=== PATIENT | female | born 1955 | race American Indian/Alaskan Native ===

== ENCOUNTER 2017-02-06 20:30 | Emergency (ER) | payer OTHER ==
[2017-02-06] MEDS ORDERED: NACL 0.9% 1000 ML 1,000 ML IV ONE (20:40)
--- NOTE | 2017-02-06 20:48 | Emergency Department Report ---
HPI - General Chief Complaint: Syncope Time Seen by Provider: 02/06/17 20:35 - HPI HPI: This is a 61-year-old Afro-Wallisian female presents emergency department by EMS from home with a complaint of a episode of passing out or nearly passing out as well as some hypotension. The patient says she spent a long amount of time outside today in the heat preparing food and ate barbecue. At one point she felt dizzy and went to sit down on the porch and was witnessed by family falling backwards onto her back. They called EMS saying that the patient was having some seizure-like activity. EMS got there and the patient just appeared to be lethargic and/or confused and was found to be hypotensive with a systolic in the 70s. She was given some IV fluid and EMS says she has improved. The patient says she has a history of spinal stenosis, a AL in 1998 and a questionable previous CVA without any current deficits. Patient is from [place] where she has a primary care physician. She has been in [place] for the past 1.5 months. ED Past Medical Hx - Past Medical History Previous Medical History?: Yes Hx Hypertension: Yes Hx CVA: Yes Hx Seizures: Yes Additional medical history: c spine stenosis - Surgical History Past Surgical History?: Yes Additional Surgical History: j luis in neck, fusion c spine. - Social History Smoking Status: Current Every Day Smoker Substance Use Type: Alcohol, Marijuana - Medications Home Medications: Home Medications Medication Instructions Recorded Confirmed Last Taken Type Nitrofurantoin Du[place]in/M-Cryst 100 mg PO ONCE #14 capsule 02/07/17 Unknown Rx [Macrobid CAP] ED Review of Systems ROS: Stated complaint: LOW BP Other details as noted in HPI Comment: All other systems reviewed and negative Constitutional: denies: chills, fever Eyes: denies: eye pain, eye discharge, vision change ENT: denies: ear pain, throat pain Respiratory: denies: cough, shortness of breath, wheezing Cardiovascular: syncope. denies: chest pain Gastrointestinal: denies: abdominal pain, nausea, diarrhea Genitourinary: denies: urgency, dysuria, discharge Musculoskeletal: denies: back pain, joint swelling, arthralgia Skin: denies: rash, lesions Neurological: other (dizziness). denies: headache Physical Exam - Physical Exam Vital Signs: Vital Signs 02/06/17 20:34 Temperature 97.9 F Pulse Rate 84 Respiratory 18 Rate Blood Pressure 97/61 O2 Sat by Pulse 99 Oximetry Physical Exam: GENERAL: The patient is well-developed well-nourished. HEENT: Normocephalic. Atraumatic. Extraocular motions are intact. Patient has moist mucous membranes. Pupils equal reactive to light bilaterally. No nystagmus. NECK: Supple. Trachea is midline. CHEST/LUNGS: Clear to auscultation. There is no respiratory distress noted. HEART/CARDIOVASCULAR: Regular. There is no tachycardia. There is no gallop rub or murmur. ABDOMEN: Abdomen is soft, nontender. Patient has normal bowel sounds. There is no abdominal distention. SKIN: Patient has a small partial thickness burn to the plantar portion of the right great toe. NEURO: The patient is awake, alert, and oriented. The patient is cooperative. The patient has no focal neurologic deficits. The patient has normal speech. Cranial nerves II through XII grossly intact. Pronator drift. No dysmetria. MUSCULOSKELETAL: There is no tenderness or deformity. There is no limitation range of motion. There is no evidence of acute injury. Muscle strength 5 out of 5 for upper and lower extremity bilaterally. Cap refill less than 2 seconds. ED Course Vital Signs 02/06/17 20:34 Temperature 97.9 F Pulse Rate 84 Respiratory 18 Rate Blood Pressure 97/61 O2 Sat by Pulse 99 Oximetry ED Medical Decision Making - Lab Data Result diagrams: 02/06/17 21:20 02/06/17 21:20 - EKG Data -: EKG Interpreted by Mi EKG shows normal: sinus rhythm, axis, intervals, QRS complexes, ST-T waves Rate: normal - EKG Data When compared to previous EKG there are: previous EKG unavailable Interpretation: normal EKG - Radiology Data Radiology results: report reviewed, image reviewed interpreted by me: Chest x-ray did not show any acute process. Heart is normal shape and size. No effusions. No pneumothorax. No signs of pneumonia seen. Abdominal x-ray shows some nonspecific nonobstructive bowel gas and some stool throughout the colon. CT of the head does not show any acute process including no hemorrhage, mass, shift, diffuse edema or skull fracture. - Medical Decision Making 61-year-old female presents the emergency department after she had some syncope or near syncope at home. The patient presented with some hypotension that responded very well to IV fluid resuscitation. The patient's that she spent a long time outside in the heat before this all began. Since the patient has been in the emergency department she has been awake, alert and in no acute distress. She had a CT of the head without contrast did not show any bleed, shift, mass or any acute process. EKG did not show any signs of ST elevation AL , ischemia or dysrhythmia. Patient's labs and the mostly unremarkable. There is a mild urinary tract infection. Otherwise there is no leukocytosis, electrolyte abnormalities, renal insufficiency, glucose abnormalities. She has normal thyroid function. Negative troponin. Patient was given IV fluid resuscitation, a dose of Toradol for some chronic pains and a Macrobid for a mild urinary tract infection. Patient was tested for ambulation in the emergency department and appeared stable. With the patient's negative workup and her history, it appears that the patient may have had a vasovagal episode or some hypotension from dehydration. Nonetheless, there has been no focal, motor or sensory deficits in her cranial nerves are intact. The patient appears safe for discharge home at this time. She's been encouraged to follow up with a primary care doctor and return to the emergency department with any worsening of her symptoms or any acute distress. She understands and agrees the plan. - Differential Diagnosis orthostatic hypotension, vasovagal, TIA, UTI, dehydration Critical Care Time: No Critical care attestation.: If time is entered above; I have spent that time in minutes in the direct care of this critically ill patient, excluding procedure time. ED Disposition Clinical Impression: Dehydration Syncope Qualifiers: Syncope type: unspecified Qualified Code(s): R55 - Syncope and collapse UTI (urinary tract infection) Qualifiers: Urinary tract infection type: acute cystitis Hematuria presence: without hematuria Qualified Code(s): N30.00 - Acute cystitis without hematuria Disposition: DISCHARGED TO HOME OR SELFCARE Is pt being admited?: No Condition: Stable Instructions: Syncope (ED), Urinary Tract Infection in Women (ED), Dehydration (ED) Additional Instructions: Please follow-up with a primary care doctor in the next few days if possible. Return to the emergency department with any worsening of your symptoms or any acute distress. Prescriptions: Nitrofurantoin Duplin/M-Cryst [Macrobid CAP] 100 mg PO ONCE #14 capsule Referrals: PRIMARY CARE, [Primary Care Provider] - 3-5 Days Time of Disposition: 01:16
--- NOTE | 2017-02-06 21:28 | Cat Scan Report ---
FINAL REPORT EXAM: CT HEAD/BRAIN WO CON HISTORY: Syncope TECHNIQUE: CT was performed from the foramen magnum through the vertex in the axial plane without the use of intravenous contrast. PRIORS: None. FINDINGS: The almendarez/white matter attenuation pattern is normal. There is no mass lesion or mass effect. There are no abnormal extra-axial fluid collections. There is no evidence of acute intracranial hemorrhage or infarct. The ventricles are of normal size and configuration. The skull and orbits are unremarkable. The visualized paranasal sinuses are clear. IMPRESSION: Normal CT of the head.
[2017-02-06 21:45] LABS: Basophils % (Auto) 1.4 % (0.0-1.8); Eosinophils % (Auto) 3.4 % (0.0-4.3); Hemoglobin 12.5 gm/dl (10.1-14.3); Mean Corpuscular HGB Conc 34 % (30-34); Mean Corpuscular Hemoglobin 33 pg (28-32); Mean Corpuscular Volume 97 fl (79-97); Platelet Count 159 K/mm3 (140-440); Red Blood Count 3.83 M/mm3 (3.65-5.03); Red Cell Distribution Width 13.5 % (13.2-15.2); White Blood Count 7.9 K/mm3 (4.5-11.0)
[2017-02-06 21:57] LABS: Alanine Aminotransferase 14 units/L (7-56); Albumin/Globulin Ratio 1.5 %; Alkaline Phosphatase 54 units/L (35-129); Anion Gap 22 mmol/L; Bilirubin,Total 0.2 mg/dL (0.1-1.2); Blood Urea Nitrogen 18 mg/dL (7-17); Calcium 9.3 mg/dL (8.4-10.2); Carbon Dioxide 18 mmol/L (22-30); Chloride 104.7 mmol/L (98-107); Glucose 95 mg/dL (65-100); Potassium 3.8 mmol/L (3.6-5.0); Sodium 141 mmol/L (137-145); Total Protein 6.6 g/dL (6.3-8.2)
[2017-02-06] MEDS ORDERED: TORADOL IV ONE (23:04)
[2017-02-07 00:41] LABS: Bacteria,Urine 1+ /HPF (Negative); Mucus,Urine FEW /HPF
[2017-02-07 01:00] LABS: Bilirubin,Urine NEG (Negative); Blood,Urine SM (Negative); Ketones,Urine NEG (Negative); Leukocyte Esterase,Urine LG (Negative); Nitrite,Urine POS (Negative); Protein,Urine <15 mg/dL mg/dL (Negative); Urobilinogen,Urine < 2.0 mg/dL (<2.0)
[2017-02-07] MEDS ORDERED: MACROBID PO ONE (01:07)
[2017-02-07 01:31] VITALS: BP 115/84
--- NOTE | 2017-02-07 08:52 | XRay Report ---
ABDOMINAL SERIES: History: Abdominal pain, constipation. Supine and upright views of the abdomen and frontal view of the chest are submitted. There is gas mixed with moderate stool throughout the colon. There are no dilated loops of bowel or air-fluid levels. There is no free intraperitoneal gas. The lungs are clear. IMPRESSION: Fecal retention.
== END 2017-02-07 01:31 | disposition home or self-care (01) ==
LOC: ED 20:30
DX: E86.0 Dehydration (principal); N30.00 Acute cystitis without hematuria; R55 Syncope and collapse; I10 Essential (primary) hypertension; I63.9 Cerebral infarction, unspecified; F17.200 Nicotine dependence, unspecified, uncomplicated; F12.90 Cannabis use, unspecified, uncomplicated
CPT/HCPCS: 36415; 70450; 74022; 80053; 81001; 82550; 84443; 84484; 85025; 93005; 93010; 96361; 96374; 99285; J1885

== ENCOUNTER 2017-09-25 08:21 | Inpatient (IN) | payer MEDICAID ==
--- NOTE | 2017-09-25 10:09 | Emergency Department Report ---
HPI - General Chief Complaint: Allergic Reaction ED Past Medical Hx - Past Medical History Previous Medical History?: Yes Hx Hypertension: Yes Hx CVA: Yes Hx Seizures: Yes Additional medical history: c spine stenosis - Surgical History Past Surgical History?: Yes Additional Surgical History: j luis in neck, fusion c spine. - Social History Smoking Status: Current Every Day Smoker Substance Use Type: Alcohol - Medications Home Medications: Home Medications Medication Instructions Recorded Confirmed Last Taken Type Nitrofurantoin [place]/M-Cryst 100 mg PO ONCE #14 capsule 02/07/17 Unknown Rx [Macrobid CAP] ED Review of Systems ROS: Stated complaint: ALLERGIC REACTION Other details as noted in HPI Physical Exam - Physical Exam Vital Signs: Vital Signs 09/25/17 08:35 Temperature 98.4 F Pulse Rate 100 H Respiratory 16 Rate Blood Pressure 104/77 O2 Sat by Pulse 97 Oximetry ED Course Vital Signs 09/25/17 08:35 Temperature 98.4 F Pulse Rate 100 H Respiratory 16 Rate Blood Pressure 104/77 O2 Sat by Pulse 97 Oximetry Critical care attestation.: If time is entered above; I have spent that time in minutes in the direct care of this critically ill patient, excluding procedure time. ED Disposition Condition: Stable Referrals: PRIMARY CARE, [Primary Care Provider] - 3-5 Days
[2017-09-25 11:01] LABS: Basophils % (Auto) 0.6 % (0.0-1.8); Eosinophils % (Auto) 1.6 % (0.0-4.3); Hematocrit 41.1 % (30.3-42.9); Hemoglobin 13.6 gm/dl (10.1-14.3); Mean Corpuscular HGB Conc 33 % (30-34); Mean Corpuscular Hemoglobin 32 pg (28-32); Mean Corpuscular Volume 97 fl (79-97); Platelet Count 208 K/mm3 (140-440); Red Blood Count 4.25 M/mm3 (3.65-5.03); Red Cell Distribution Width 13.9 % (13.2-15.2); White Blood Count 11.7 K/mm3 (4.5-11.0)
[2017-09-25 11:20] LABS: Albumin 4.1 g/dL (3.9-5); Albumin/Globulin Ratio 1.3 %; Bilirubin,Total 0.4 mg/dL (0.1-1.2); Calcium 9.2 mg/dL (8.4-10.2); Chloride 105.2 mmol/L (98-107); Potassium 3.9 mmol/L (3.6-5.0); Total Protein 7.2 g/dL (6.3-8.2)
[2017-09-25] MEDS ORDERED: BENADRYL IV ONE (11:52)
[2017-09-25] MEDS ORDERED: ADRENALIN IM ONE (12:56)
--- NOTE | 2017-09-25 13:02 | Emergency Department Report ---
ED Allergic Reaction HPI - General Chief complaint: Allergic Reaction Stated complaint: ALLERGIC REACTION Time Seen by Provider: 09/25/17 10:51 Source: patient, family Mode of arrival: Ambulatory Limitations: No Limitations - History of Present Illness MD Complaint: allergic reaction, other (angioedema on donaldo) -: Gradual (2 days) Exposure: medication (lisinopril 30 daily) Symptoms: itching, facial swelling, lip swelling, difficulty swallowing (afraid to eat). denies: difficulty breathing, orolingual swelling, hoarseness, syncopy , dizziness, nausea, vomiting, abdominal pain Severity: moderate Treatment Prior to Arrival: none Previous Allergy History: none - Related Data Allergies Allergy/AdvReac Type Severity Reaction Status Date / Time No Known Allergies Allergy Unverified 02/06/17 20:34 ED Review of Systems ROS: Stated complaint: ALLERGIC REACTION Other details as noted in HPI Comment: All other systems reviewed and negative Constitutional: denies: fever ENT: throat pain Respiratory: denies: shortness of breath Cardiovascular: denies: chest pain, palpitations Skin: other (itching no rash). denies: rash Neurological: denies: headache, weakness Psychiatric: denies: anxiety, depression Hematological/Lymphatic: denies: easy bleeding ED Past Medical Hx - Past Medical History Previous Medical History?: Yes Hx Hypertension: Yes Hx CVA: Yes Hx Seizures: Yes Additional medical history: c spine stenosis - Surgical History Past Surgical History?: Yes Additional Surgical History: j luis in neck, fusion c spine. - Social History Smoking Status: Current Every Day Smoker Substance Use Type: Alcohol ED Physical Exam - General Limitations: No Limitations General appearance: alert, in no apparent distress (no sob on admit) - Head Head exam: Present: atraumatic - Eye Eye exam: Present: PERRL - ENT ENT exam: Present: mucous membranes moist, other (mild swelling throat and tongue- for 2 days; lips swollen) - Neck Neck exam: Present: normal inspection - Respiratory Respiratory exam: Present: normal lung sounds bilaterally - Cardiovascular Cardiovascular Exam: Present: regular rate, tachycardia (100) - GI/Abdominal GI/Abdominal exam: Present: soft - Rectal Rectal exam: Present: deferred - Extremities Exam Extremities exam: Present: normal inspection, full ROM - Back Exam Back exam: Present: normal inspection - Neurological Exam Neurological exam: Present: alert, oriented X3, CN II-XII intact, normal gait, reflexes normal - Psychiatric Psychiatric exam: Present: normal affect, normal mood - Skin Skin exam: Present: warm, dry, intact. Absent: rash ED Course Vital Signs 09/25/17 09/25/17 09/25/17 08:35 13:52 14:06 Temperature 98.4 F Pulse Rate 100 H 93 H 101 H Respiratory 16 15 43 H Rate Blood Pressure 104/77 O2 Sat by Pulse 97 94 93 Oximetry 09/25/17 09/25/17 14:15 15:40 Temperature Pulse Rate 92 H 90 Respiratory 29 H 20 Rate Blood Pressure 115/56 O2 Sat by Pulse 91 97 Oximetry - Reevaluation(s) Reevaluation #1: 09/25/17 13:19 to er w 2 d hx of lip swelling an itching the only med she is on is lisinopril 30 mg daily and has been for years she denies sob denies cp no rash but is itchy abc intact new to area pmh htn sz gerd spinal stenosis cva in past meds loratidine oxybut b12 Fe lisniopril keppra pepcid carli simvistatin meloxicam nkda psh spinal stenosis medicated labs sent rn had trouble getting a line int finally inserted l hand pt itching p solumedrol benadryl given Dr Kaplan aware of pt- will see mell labs noted pt updated family at bedside. Reevaluation #2: 09/25/17 12:59 Reassessed itching improved pt taking sips po fluids lips about the same voice sounds a bit different than on admit Dr. Kaplan to bedside epi IM To main ED will be admitted. RN aware. RN aware pt needs to go on rail grinder. [id number] RA. 09/25/17 13:23 Dr Martinez notified of pt need to admit icu bed requested per his request pt directly being observed from station w open door Reevaluation #3: 09/25/17 13:24 sat 98% room air 09/25/17 13:48 Dr Martinez at bedside- orders placed for Dr. Martinez Dewer paged ICU bed pending pt to main ED 09/25/17 14:00 Dr Kenney, ICU notified of pt presentation and need for eval per Dr Martinez 09/25/17 1600 Dewer to unit to see pt. pt remains on denise side w ICU bed pending ED Medical Decision Making - Lab Data Result diagrams: 09/25/17 10:19 09/25/17 10:19 - Radiology Data Radiology results: report reviewed, image reviewed - Medical Decision Making see note - Differential Diagnosis angioedema likely donaldo Critical care attestation.: If time is entered above; I have spent that time in minutes in the direct care of this critically ill patient, excluding procedure time. ED Disposition Clinical Impression: Angioedema, HTN (hypertension), Chronic pain Disposition: OP ADMIT IP TO THIS HOSP Is pt being admited?: Yes Does the pt Need Aspirin: No Condition: Stable
--- NOTE | 2017-09-25 13:33 | XRay Report ---
AP CHEST: HISTORY: Allergic reaction, shortness of breath AP view of the chest demonstrates a normal mediastinal and cardiac contour with clear lungs and normal bony and soft tissue structures. IMPRESSION: Unremarkable AP chest.
[2017-09-25] MEDS ORDERED: PEPCID IV ONE (13:43)
[2017-09-25] MEDS ORDERED: BENADRYL IV PRN (13:45)
--- NOTE | 2017-09-25 14:06 | History and Physical Report ---
History of Present Illness Date of examination: 09/25/17 Chief complaint: Swelling of the lips History of present illness: 62-year-old -Beninese female with past medical history significant for hypertension, seizure, spinal stenosis, GERD, stroke presented to the emergency department with complaints of facial swelling. Patient claimed she had itching on Tuesday afternoon, yesterday she had f facial swelling that has been progressively getting worse, involving the lips and this morning she has some change in her voice and patient presented to the emergency department. Patient has been taking lisinopril for many years. Patient has mild difficulty of breathing after she presented in the emergency department. Patient did have any wheezing, stridor, or any signs of respiratory distress. Patient was evaluated and start appropriate treatment for angioedema and cigar binder consulted and admitted to ICU. REVIEW OF SYSTEMS: GENERAL: no weight change, no fatigue, no fever HEAD: no head ache EYES: no blurry vision, no acute visual loss EARS: no hearing loss, no discharge, no earache NOSE: no stuffiness, no sneezing, no discharge MOUTH, THROAT AND NECK: no bleeding gums, no sore throat, no swollen neck CARDIAC: no palpitations, no dyspnea on exertion, no orthopnea, no PND, no edema , no chest pain RESPIRATORY: no shortness of breath, no wheeze, no cough, no sputum, no hemoptysis, no asthma GI: no decreased appetite, no nausea, no vomiting, no dysphagia, no diarrhea, no constipation, no abdominal pain URINARY: no change in frequency, no urgency, no polyuria, no hematuria, no incontinence MUSCULOSKELETAL: no muscle weakness, no pain, no joint stiffness NEUROLOGIC: no loss of sensation/numbness, no tingling, no tremors, no weakness/ paralysis HEMATOLOGIC: no anemia, no easy bruising SKIN: no rashes ENDOCRINE: no heat/cold intolerance, no polyuria, no polydipsia, no thyroid problems, no diabetes PSYCHIATRIC: no anxiety, no depression, no suicidal ideations Past History Past Medical History: GERD, hypertension, stroke, other (spinal stenosis) Past Surgical History: Other (multiple back surgery) Social history: full code. denies: smoking, alcohol abuse, prescription drug abuse, IV drug use Family history: no significant family history Medications and Allergies Allergies Allergy/AdvReac Type Severity Reaction Status Date / Time No Known Allergies Allergy Unverified 02/06/17 20:34 Active Meds: Active Medications Diphenhydramine HCl (Benadryl) 25 mg IV Q6H PRN PRN Reason: Itching Famotidine (Pepcid) 20 mg IV BID JUAN Heparin Sodium (Porcine) (Heparin) 5,000 unit SUB-Q Q8HR JUAN Methylprednisolone Sodium Succinate (Solu-Medrol) 125 mg IV DAILY [facility] Exam - Physical Exam Narrative exam: Not in cardiopulmonary distress. The patient appeared well nourished and normally developed. Vital signs as documented. Lips swelling, facial swelling. Head exam is unremarkable. No scleral icterus . Neck is without jugular venous distension, thyromegaly, or carotid bruits. Lungs are clear to auscultation. No wheezing. Cardiac exam reveals regular rate and Rhythm. First and second heart sounds normal. No murmurs, rubs or gallops. Abdominal exam reveals normal bowel sounds, no masses, no organomegaly and no aortic enlargement. Extremities are nonedematous and both femoral and pedal pulses are normal. [employer]: Alert and oriented 3. No focal weakness. - Constitutional Vitals: Temp Pulse Resp BP Pulse Ox 98.4 F 100 H 16 104/77 97 09/25/17 08:35 09/25/17 08:35 09/25/17 08:35 09/25/17 08:35 09/25/17 08:35 Results - Labs CBC & Chem 7: 09/25/17 10:19 09/25/17 10:19 Labs: Laboratory Last Values WBC 11.7 K/mm3 (4.5-11.0) H 09/25/17 10:19 RBC 4.25 M/mm3 (3.65-5.03) 09/25/17 10:19 Hgb 13.6 gm/dl (10.1-14.3) 09/25/17 10:19 Hct 41.1 % (30.3-42.9) 09/25/17 10:19 MCV 97 fl (79-97) 09/25/17 10:19 MCH 32 pg (28-32) 09/25/17 10:19 MCHC 33 % (30-34) 09/25/17 10:19 RDW 13.9 % (13.2-15.2) 09/25/17 10:19 Plt Count 208 K/mm3 (140-440) 09/25/17 10:19 Lymph % (Auto) 26.1 % (13.4-35.0) 09/25/17 10:19 Brule % (Auto) 2.4 % (0.0-7.3) 09/25/17 10:19 Eos % (Auto) 1.6 % (0.0-4.3) 09/25/17 10:19 Baso % (Auto) 0.6 % (0.0-1.8) 09/25/17 10:19 Lymph # 3.1 K/mm3 (1.2-5.4) 09/25/17 10:19 Brule # 0.3 K/mm3 (0.0-0.8) 09/25/17 10:19 Eos # 0.2 K/mm3 (0.0-0.4) 09/25/17 10:19 Baso # 0.1 K/mm3 (0.0-0.1) 09/25/17 10:19 Seg Neutrophils % 69.3 % (40.0-70.0) 09/25/17 10:19 Seg Neutrophils # 8.1 K/mm3 (1.8-7.7) H 09/25/17 10:19 Sodium 141 mmol/L (137-145) 09/25/17 10:19 Potassium 3.9 mmol/L (3.6-5.0) 09/25/17 10:19 Chloride 105.2 mmol/L (98-107) 09/25/17 10:19 Carbon Dioxide 20 mmol/L (22-30) L 09/25/17 10:19 Anion Gap 20 mmol/L 09/25/17 10:19 BUN 18 mg/dL (7-17) H 09/25/17 10:19 Creatinine 1.2 mg/dL (0.7-1.2) 09/25/17 10:19 Estimated GFR 55 ml/min 09/25/17 10:19 BUN/Creatinine Ratio 15 % 09/25/17 10:19 Glucose 108 mg/dL (65-100) H 09/25/17 10:19 Calcium 9.2 mg/dL (8.4-10.2) 09/25/17 10:19 Total Bilirubin 0.40 mg/dL (0.1-1.2) 09/25/17 10:19 AST 12 units/L (5-40) 09/25/17 10:19 ALT 14 units/L (7-56) 09/25/17 10:19 Alkaline Phosphatase 63 units/L (35-129) 09/25/17 10:19 Total Protein 7.2 g/dL (6.3-8.2) 09/25/17 10:19 Albumin 4.1 g/dL (3.9-5) 09/25/17 10:19 Albumin/Globulin Ratio 1.3 % 09/25/17 10:19 - Imaging and Cardiology Chest x-ray: image reviewed (Normal AP CXR) Assessment and Plan Assessment and plan: Angioedema, lip swelling Seizure disorder HTN GERD History of stroke - Patient is on Solu-Medrol, Benadryl, H2 blockers - On duonebs - Start appropriate medications - Intensity was consulted DVT prophylaxis Heparin Disposition Admitted to ICU The high probability of a clinically significant, sudden or life threatening deterioration of the [respiratory] system(s) required my full and direct attention, intervention and personal management. The aggregate critical care time was [31] minutes. This time is in addition to time spent performing reported procedures but includes the following: [x] Data Review and interpretation [x] Patient assessment and monitoring of vital signs [x] Documentation [x] Medication orders and management Advance Directives: Yes VTE prophylaxis?: Chemical Plan of care discussed with patient/family: Yes
--- NOTE | 2017-09-25 15:11 | Consultation ---
History of Present Illness Consult date: 09/25/17 Requesting physician: INDIGO SANDERSON Reason for consult: other (Angioedema) History of present illness: PULMONARY/CCM CONSULT NOTE (Full dictation # [id number]) please see dictated notes for full details Medications and Allergies Allergies Allergy/AdvReac Type Severity Reaction Status Date / Time No Known Allergies Allergy Unverified 02/06/17 20:34 Active Meds: Active Medications Albuterol/Ipratropium (Duoneb *Not For Prn Use*) 1 ampul IH QIDRT JUAN Diphenhydramine HCl (Benadryl) 25 mg IV Q6H PRN PRN Reason: Itching Famotidine (Pepcid) 20 mg IV BID JUAN Heparin Sodium (Porcine) (Heparin) 5,000 unit SUB-Q Q8HR UJAN Methylprednisolone Sodium Succinate (Solu-Medrol) 125 mg IV DAILY JUAN Physical Examination Vital signs: Vital Signs Temp Pulse Resp BP Pulse Ox 98.4 F 100 H 16 104/77 97 09/25/17 08:35 09/25/17 08:35 09/25/17 08:35 09/25/17 08:35 09/25/17 08:35 Results - Laboratory Findings CBC and BMP: 09/25/17 10:19 09/25/17 10:19 Abnormal lab findings: Abnormal Labs 09/25/17 09/25/17 10:19 10:19 WBC 11.7 H Seg Neutrophils # 8.1 H Carbon Dioxide 20 L BUN 18 H Glucose 108 H
[2017-09-25 15:31] LABS: ISTAT Base Excess -9; ISTAT HCO3 16.7; ISTAT PCO2 29.4 (35-45); ISTAT PH 7.361 (7.35-7.45); ISTAT PO2 66 (80-105); ISTAT SO2 92; ISTAT TCO2 18
[2017-09-25] MEDS: DUONEB *Not for PRN Use IH SCH ×2 (16:05→19:47)
[2017-09-25] MEDS ORDERED: KEPPRA 1,000 MG/NS 0.75% 100ML 1,000 MG/100 ML BAG IV ONE (17:23)
[2017-09-25] MEDS: MORPHINE IV PRN (20:22)
[2017-09-25] MEDS ORDERED: KEPPRA 1,000 MG in NACL 0.9% 100 ML IV SCH (22:00)
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
[2017-09-26] MEDS: BENADRYL IV SCH ×5 (00:16→19:23)
[2017-09-26] MEDS: MORPHINE IV PRN ×5 (00:17→21:39)
[2017-09-26] MEDS: HEPARIN SUB-Q SCH ×4 (06:39→21:44)
[2017-09-26] MEDS: PEPCID IV SCH ×3 (06:41→21:34)
[2017-09-26] MEDS: DUONEB *Not for PRN Use IH SCH ×4 (09:26→20:33)
[2017-09-26] MEDS ORDERED: KEPPRA 1,000 MG/NS 0.75% 100ML 1,000 MG/100 ML BAG IV SCH (10:00)
--- NOTE | 2017-09-26 14:46 | Progress Note ---
Assessment and Plan Total Time Spent with Patient (Minutes): 23 - Patient Problems (1) Seizure disorder Current Visit: Yes Status: Acute Plan to address problem: Patient was seizure disorder now gives a possible history of being allergic to Keppra. We'll discontinue Her use an additional agent will obtain neurology evaluation may require another EEG. Patient's description of her seizure is somewhat difficult to obtain. (2) Angioedema Current Visit: Yes Status: Acute Plan to address problem: Now may be secondary to Keppra versus lisinopril. We'll discontinue both medications. Blood pressure stable well controlled at this time. Patient has no stridor lip swelling is going down we'll continue steroids and discharged from ICU. (3) Chronic pain Current Visit: Yes Status: Acute (4) HTN (hypertension) Current Visit: Yes Status: Acute Plan to address problem: A pleasant blood pressure is normal without any medications. No attention but we'll continue to observe. History Interval history: Patient today stated that she had problems with itching after taking keppra which was similar to her initial episode of angioedema. Hospitalist Physical - Constitutional Vitals: Temp Pulse Resp BP Pulse Ox 98.3 F 101 H 18 119/56 98 09/26/17 12:00 09/26/17 12:21 09/26/17 12:21 09/26/17 12:21 09/26/17 12:21 General appearance: Present: no acute distress, other (swollen lip appears to be less than yesterday. Patient does complain of facial itching again.) - EENT Eyes: Present: PERRL, EOM intact ENT: hearing intact, clear oral mucosa, dentition normal, other, no oropharyngeal erythema (angioedema), no poor dentition, no thrush, no ulcerations - Neck Neck: Present: supple, normal ROM, other ( no stridor) - Respiratory Respiratory effort: normal Respiratory: bilateral: CTA - Cardiovascular Rhythm: regular - Extremities Extremities: no ischemia, pulses intact, normal temperature, normal color, Full ROM Extremity abnormal: edema - Abdominal General gastrointestinal: soft, non-tender, non-distended, normal bowel sounds - Psychiatric Psychiatric: appropriate mood/affect, intact judgment & insight, cooperative - Neurologic Neurologic: CNII-XII intact Results - Labs CBC & Chem 7: 09/25/17 10:19 09/25/17 10:19 Labs: Laboratory Last Values WBC 11.7 K/mm3 (4.5-11.0) H 09/25/17 10:19 RBC 4.25 M/mm3 (3.65-5.03) 09/25/17 10:19 Hgb 13.6 gm/dl (10.1-14.3) 09/25/17 10:19 Hct 41.1 % (30.3-42.9) 09/25/17 10:19 MCV 97 fl (79-97) 09/25/17 10:19 MCH 32 pg (28-32) 09/25/17 10:19 MCHC 33 % (30-34) 09/25/17 10:19 RDW 13.9 % (13.2-15.2) 09/25/17 10:19 Plt Count 208 K/mm3 (140-440) 09/25/17 10:19 Lymph % (Auto) 26.1 % (13.4-35.0) 09/25/17 10:19 [place] % (Auto) 2.4 % (0.0-7.3) 09/25/17 10:19 Eos % (Auto) 1.6 % (0.0-4.3) 09/25/17 10:19 Baso % (Auto) 0.6 % (0.0-1.8) 09/25/17 10:19 Lymph # 3.1 K/mm3 (1.2-5.4) 09/25/17 10:19 [place] # 0.3 K/mm3 (0.0-0.8) 09/25/17 10:19 Eos # 0.2 K/mm3 (0.0-0.4) 09/25/17 10:19 Baso # 0.1 K/mm3 (0.0-0.1) 09/25/17 10:19 Seg Neutrophils % 69.3 % (40.0-70.0) 09/25/17 10:19 Seg Neutrophils # 8.1 K/mm3 (1.8-7.7) H 09/25/17 10:19 POC ABG pH 7.361 (7.35-7.45) 09/25/17 15:28 POC ABG pCO2 29.4 (35-45) L 09/25/17 15:28 POC ABG pO2 66 (80-105) L 09/25/17 15:28 POC ABG HCO3 16.7 09/25/17 15:28 POC ABG Total CO2 18 09/25/17 15:28 POC ABG O2 Sat 92 09/25/17 15:28 POC ABG Base Excess -9 09/25/17 15:28 FiO2 21 % 09/25/17 15:28 Sodium 141 mmol/L (137-145) 09/25/17 10:19 Potassium 3.9 mmol/L (3.6-5.0) 09/25/17 10:19 Chloride 105.2 mmol/L (98-107) 09/25/17 10:19 Carbon Dioxide 20 mmol/L (22-30) L 09/25/17 10:19 Anion Gap 20 mmol/L 09/25/17 10:19 BUN 18 mg/dL (7-17) H 09/25/17 10:19 Creatinine 1.2 mg/dL (0.7-1.2) 09/25/17 10:19 Estimated GFR 55 ml/min 09/25/17 10:19 BUN/Creatinine Ratio 15 % 09/25/17 10:19 Glucose 108 mg/dL (65-100) H 09/25/17 10:19 Calcium 9.2 mg/dL (8.4-10.2) 09/25/17 10:19 Total Bilirubin 0.40 mg/dL (0.1-1.2) 09/25/17 10:19 AST 12 units/L (5-40) 09/25/17 10:19 ALT 14 units/L (7-56) 09/25/17 10:19 Alkaline Phosphatase 63 units/L (35-129) 09/25/17 10:19 Total Protein 7.2 g/dL (6.3-8.2) 09/25/17 10:19 Albumin 4.1 g/dL (3.9-5) 09/25/17 10:19 Albumin/Globulin Ratio 1.3 % 09/25/17 10:19
--- NOTE | 2017-09-26 15:21 | Progress Note ---
Assessment and Plan - Patient Problems (1) Angioedema Status: Acute Plan to address problem: Much improved. Continue steroids, antihistamines and H2 blockers Conitnue to monitor airway but can be transferred to telemetry (2) Seizure disorder Status: Acute Plan to address problem: Continue antiseizure medications (3) HTN (hypertension) Status: Acute Plan to address problem: Avoid JULIA inhibitors. Continue all other therapies Lifestyle modifications, DASH diet discussed. Subjective Date of service: 09/26/17 Principal diagnosis: Angioedema Interval history: Seen and examined. Discussed on interdisciplinary rounds. No chest pain, no shortness of breath, no dysphagia Has shown clinical improvement Objective - Exam Narrative Exam: Not in cardiopulmonary distress. The patient appeared well nourished and normally developed. Vital signs as documented. Lips swelling, facial swelling. Head exam is unremarkable. No scleral icterus . Neck is without jugular venous distension, thyromegaly, or carotid bruits. Lungs are clear to auscultation. No wheezing. Cardiac exam reveals regular rate and Rhythm. First and second heart sounds normal. No murmurs, rubs or gallops. Abdominal exam reveals normal bowel sounds, no masses, no organomegaly and no aortic enlargement. Extremities are nonedematous and both femoral and pedal pulses are normal. 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 No focal weakness. Vital Signs - 12hr 09/26/17 09/26/17 09/26/17 03:21 03:31 03:41 Temperature Pulse Rate 63 68 68 Pulse Rate [ Anterior Bilateral Throughout] Pulse Rate [ From Monitor] Respiratory 15 21 20 Rate Respiratory Rate [Anterior Bilateral Throughout] Blood Pressure 117/81 117/81 117/81 O2 Sat by Pulse 99 96 98 Oximetry 09/26/17 09/26/17 09/26/17 03:51 04:00 04:11 Temperature 97.9 F Pulse Rate 73 87 67 Pulse Rate [ Anterior Bilateral Throughout] Pulse Rate [ From Monitor] Respiratory 15 16 16 Rate Respiratory Rate [Anterior Bilateral Throughout] Blood Pressure 117/81 109/58 109/58 O2 Sat by Pulse 98 97 98 Oximetry 09/26/17 09/26/17 09/26/17 04:21 04:31 04:41 Temperature Pulse Rate 77 73 66 Pulse Rate [ Anterior Bilateral Throughout] Pulse Rate [ From Monitor] Respiratory 18 22 15 Rate Respiratory Rate [Anterior Bilateral Throughout] Blood Pressure 109/58 109/58 109/58 O2 Sat by Pulse 98 98 98 Oximetry 09/26/17 09/26/17 09/26/17 04:51 05:01 05:11 Temperature Pulse Rate 68 71 92 H Pulse Rate [ Anterior Bilateral Throughout] Pulse Rate [ From Monitor] Respiratory 14 12 25 H Rate Respiratory Rate [Anterior Bilateral Throughout] Blood Pressure 109/58 123/66 123/66 O2 Sat by Pulse 98 95 99 Oximetry 09/26/17 09/26/17 09/26/17 05:21 05:31 05:41 Temperature Pulse Rate 74 90 82 Pulse Rate [ Anterior Bilateral Throughout] Pulse Rate [ From Monitor] Respiratory 12 15 17 Rate Respiratory Rate [Anterior Bilateral Throughout] Blood Pressure 123/66 123/66 123/66 O2 Sat by Pulse 99 99 97 Oximetry 09/26/17 09/26/17 09/26/17 05:51 06:00 06:11 Temperature Pulse Rate 61 61 79 Pulse Rate [ Anterior Bilateral Throughout] Pulse Rate [ From Monitor] Respiratory 17 20 14 Rate Respiratory Rate [Anterior Bilateral Throughout] Blood Pressure 123/66 106/48 106/48 O2 Sat by Pulse 98 93 97 Oximetry 09/26/17 09/26/17 09/26/17 06:21 06:31 06:41 Temperature Pulse Rate 69 91 H 67 Pulse Rate [ Anterior Bilateral Throughout] Pulse Rate [ From Monitor] Respiratory 13 16 24 Rate Respiratory Rate [Anterior Bilateral Throughout] Blood Pressure 106/48 106/48 106/48 O2 Sat by Pulse 97 95 95 Oximetry 09/26/17 09/26/17 09/26/17 06:51 07:00 07:11 Temperature Pulse Rate 71 86 60 Pulse Rate [ Anterior Bilateral Throughout] Pulse Rate [ From Monitor] Respiratory 17 23 13 Rate Respiratory Rate [Anterior Bilateral Throughout] Blood Pressure 106/48 126/65 126/65 O2 Sat by Pulse 96 87 97 Oximetry 09/26/17 09/26/17 09/26/17 07:21 07:31 07:41 Temperature Pulse Rate 59 L 58 L 61 Pulse Rate [ Anterior Bilateral Throughout] Pulse Rate [ From Monitor] Respiratory 20 20 19 Rate Respiratory Rate [Anterior Bilateral Throughout] Blood Pressure 126/65 126/65 126/65 O2 Sat by Pulse 95 96 97 Oximetry 09/26/17 09/26/17 09/26/17 07:51 08:00 08:08 Temperature 97.4 F L Pulse Rate 69 59 L Pulse Rate [ Anterior Bilateral Throughout] Pulse Rate [ 57 L From Monitor] Respiratory 13 19 20 Rate Respiratory Rate [Anterior Bilateral Throughout] Blood Pressure 126/65 105/57 O2 Sat by Pulse 96 88 97 Oximetry 09/26/17 09/26/17 09/26/17 08:11 08:21 08:31 Temperature Pulse Rate 60 59 L 58 L Pulse Rate [ Anterior Bilateral Throughout] Pulse Rate [ From Monitor] Respiratory 18 16 18 Rate Respiratory Rate [Anterior Bilateral Throughout] Blood Pressure 105/57 105/57 105/57 O2 Sat by Pulse 97 96 97 Oximetry 09/26/17 09/26/17 09/26/17 08:40 08:51 09:00 Temperature Pulse Rate 56 L 62 59 L Pulse Rate [ Anterior Bilateral Throughout] Pulse Rate [ From Monitor] Respiratory 18 18 19 Rate Respiratory Rate [Anterior Bilateral Throughout] Blood Pressure 105/57 105/57 109/54 O2 Sat by Pulse 97 96 88 Oximetry 09/26/17 09/26/17 09/26/17 09:11 09:21 09:23 Temperature Pulse Rate 60 59 L Pulse Rate [ 62 Anterior Bilateral Throughout] Pulse Rate [ From Monitor] Respiratory 21 21 Rate Respiratory 14 Rate [Anterior Bilateral Throughout] Blood Pressure 109/54 109/54 O2 Sat by Pulse 95 96 Oximetry 09/26/17 09/26/17 09/26/17 09:28 09:31 09:41 Temperature Pulse Rate 65 67 Pulse Rate [ Anterior Bilateral Throughout] Pulse Rate [ From Monitor] Respiratory 16 14 Rate Respiratory Rate [Anterior Bilateral Throughout] Blood Pressure 109/54 109/54 O2 Sat by Pulse 97 98 97 Oximetry 09/26/17 09/26/17 09/26/17 09:51 09:56 10:00 Temperature Pulse Rate 83 91 H Pulse Rate [ 86 Anterior Bilateral Throughout] Pulse Rate [ From Monitor] Respiratory 27 H Rate Respiratory 18 Rate [Anterior Bilateral Throughout] Blood Pressure 109/54 O2 Sat by Pulse 94 Oximetry 09/26/17 09/26/17 09/26/17 10:01 10:11 10:21 Temperature Pulse Rate 91 H 71 100 H Pulse Rate [ Anterior Bilateral Throughout] Pulse Rate [ From Monitor] Respiratory 20 19 29 H Rate Respiratory Rate [Anterior Bilateral Throughout] Blood Pressure 118/59 118/59 118/59 O2 Sat by Pulse 88 95 95 Oximetry 09/26/17 09/26/17 09/26/17 10:31 10:41 10:51 Temperature Pulse Rate 81 79 110 H Pulse Rate [ Anterior Bilateral Throughout] Pulse Rate [ From Monitor] Respiratory 13 26 H 21 Rate Respiratory Rate [Anterior Bilateral Throughout] Blood Pressure 118/59 118/59 118/59 O2 Sat by Pulse 95 94 94 Oximetry 09/26/17 09/26/17 09/26/17 11:00 11:11 11:21 Temperature Pulse Rate 84 76 74 Pulse Rate [ Anterior Bilateral Throughout] Pulse Rate [ From Monitor] Respiratory 25 H 28 H 22 Rate Respiratory Rate [Anterior Bilateral Throughout] Blood Pressure 126/60 126/60 126/60 O2 Sat by Pulse 87 96 95 Oximetry 09/26/17 09/26/17 09/26/17 11:31 11:41 11:51 Temperature Pulse Rate 84 74 73 Pulse Rate [ Anterior Bilateral Throughout] Pulse Rate [ From Monitor] Respiratory 28 H 24 20 Rate Respiratory Rate [Anterior Bilateral Throughout] Blood Pressure 126/60 126/60 126/60 O2 Sat by Pulse 95 95 95 Oximetry 09/26/17 09/26/17 09/26/17 12:00 12:11 12:21 Temperature 98.3 F Pulse Rate 68 76 101 H Pulse Rate [ Anterior Bilateral Throughout] Pulse Rate [ 68 From Monitor] Respiratory 22 24 18 Rate Respiratory Rate [Anterior Bilateral Throughout] Blood Pressure 119/56 119/56 119/56 O2 Sat by Pulse 90 96 98 Oximetry CBC and BMP: 09/25/17 10:19 09/25/17 10:19 ABG, PT/INR, D-dimer: ABG POC ABG pH 7.361 (7.35-7.45) 09/25/17 15:28 POC ABG pCO2 29.4 (35-45) L 09/25/17 15:28 POC ABG pO2 66 (80-105) L 09/25/17 15:28 POC ABG HCO3 16.7 09/25/17 15:28 POC ABG Total CO2 18 09/25/17 15:28 POC ABG O2 Sat 92 09/25/17 15:28 Abnormal lab findings: Abnormal Labs 09/25/17 09/25/17 09/25/17 10:19 10:19 15:28 WBC 11.7 H Seg Neutrophils # 8.1 H POC ABG pCO2 29.4 L POC ABG pO2 66 L Carbon Dioxide 20 L BUN 18 H Glucose 108 H
[2017-09-26] MEDS ORDERED: ATIVAN IV PRN (16:46)
[2017-09-26] MEDS ORDERED: KEPPRA PO SCH (22:00)
[2017-09-27] MEDS: BENADRYL IV SCH ×4 (00:33→18:24)
[2017-09-27] MEDS: MORPHINE IV PRN ×3 (02:26→10:47)
[2017-09-27] MEDS: HEPARIN SUB-Q SCH ×3 (07:00→21:42)
[2017-09-27] MEDS: DUONEB *Not for PRN Use IH SCH ×4 (09:46→20:02)
[2017-09-27] MEDS: PEPCID IV SCH (11:20)
--- NOTE | 2017-09-27 13:09 | Consultation ---
History of Present Illness Consult date: 09/27/17 History of present illness: patient is seen and full note dictated... still with headaches and facial swelling post reaction to lisinopril suspect thi is the typical class drug reaction to ARB;s du to the enzyme conversation agree with management- explained xx to patient and planned treatment Past History Past Medical History: GERD, hypertension, stroke, other (spinal stenosis) Past Surgical History: Other (multiple back surgery) Social history: full code. denies: smoking, alcohol abuse, prescription drug abuse, IV drug use Family history: no significant family history Medications and Allergies Allergies Allergy/AdvReac Type Severity Reaction Status Date / Time lisinopril Allergy Angioedema Verified 09/26/17 08:33 Home Medications Medication Instructions Recorded Confirmed Last Taken Type Ferrous Sulfate [Feosol 325 MG tab] 1 tab PO DAILY 09/25/17 09/25/17 09/24/17 21 :00 History 1000 Oxybutynin 5 mg PO BID 09/25/17 09/25/17 09/24/17 21:00 History 5mg Active Meds: Active Medications Albuterol/Ipratropium (Duoneb *Not For Prn Use*) 1 ampul IH QIDRT [facility] Last Admin: 09/27/17 09:46 Dose: 1 ampul Diphenhydramine HCl (Benadryl) 25 mg IV Q6HR [facility] Last Admin: 09/27/17 06:47 Dose: 25 mg Famotidine (Pepcid) 20 mg IV BID [facility] Last Admin: 09/27/17 11:20 Dose: 20 mg Heparin Sodium (Porcine) (Heparin) 5,000 unit SUB-Q Q8HR [facility] Last Admin: 09/27/17 07:00 Dose: 5,000 unit Lorazepam (Ativan) 1 mg IV Q4H PRN PRN Reason: Seizures Last Admin: 09/27/17 10:44 Dose: 1 mg Methylprednisolone Sodium Succinate (Solu-Medrol) 60 mg IV Q6H [facility] Last Admin: 09/27/17 06:48 Dose: 60 mg Morphine Sulfate (Morphine) 2 mg IV Q4H PRN PRN Reason: Pain, Moderate (4-6) Last Admin: 09/27/17 10:47 Dose: 2 mg Physical Examination - Vital Signs Vital Signs: Vital Signs Temp Pulse Resp BP Pulse Ox 98.4 F 100 H 16 104/77 97 12/03/17 08:35 09/25/17 08:35 09/25/17 08:35 09/25/17 08:35 09/25/17 08:35 Results - Laboratory Findings CBC and BMP: 09/25/17 10:19 09/25/17 10:19 Abnormal Lab Findings: Abnormal Labs 09/25/17 09/25/17 09/25/17 10:19 10:19 15:28 WBC 11.7 H Seg Neutrophils # 8.1 H POC ABG pCO2 29.4 L POC ABG pO2 66 L Carbon Dioxide 20 L BUN 18 H Glucose 108 H
--- NOTE | 2017-09-27 14:29 | Progress Note ---
Assessment and Plan Assessment and plan: Angioedema, lip swelling Seizure disorder HTN GERD History of stroke - Patient is on Solu-Medrol, Benadryl, H2 blockers - On duonebs - Discontinued Keppra and started on Depakote - neurology consult appreciated DVT prophylaxis Heparin Disposition - Continue inpatient care History Interval history: Patient was seen and evaluated this morning, she was anxious and tachycardic. Facial swelling is getting better. Hospitalist Physical - Physical exam Narrative exam: Not in cardiopulmonary distress. The patient appeared well nourished and normally developed. Vital signs as documented. Lips swelling, facial swelling. Head exam is unremarkable. No scleral icterus . Neck is without jugular venous distension, thyromegaly, or carotid bruits. Lungs are clear to auscultation. No wheezing. Cardiac exam reveals regular rate and Rhythm. First and second heart sounds normal. No murmurs, rubs or gallops. Abdominal exam reveals normal bowel sounds, no masses, no organomegaly and no aortic enlargement. Extremities are nonedematous and both femoral and pedal pulses are normal. 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 No focal weakness. - Constitutional Vitals: Temp Pulse Resp BP Pulse Ox 98.4 F 74 18 131/64 90 09/27/17 08:08 09/27/17 08:08 09/27/17 08:08 09/27/17 08:08 09/27/17 08:08 General appearance: Present: no acute distress, other (swollen lip appears to be less than yesterday. Patient does complain of facial itching again.) Results - Labs CBC & Chem 7: 09/25/17 10:19 09/25/17 10:19 Labs: Laboratory Last Values WBC 11.7 K/mm3 (4.5-11.0) H 09/25/17 10:19 RBC 4.25 M/mm3 (3.65-5.03) 09/25/17 10:19 Hgb 13.6 gm/dl (10.1-14.3) 09/25/17 10:19 Hct 41.1 % (30.3-42.9) 09/25/17 10:19 MCV 97 fl (79-97) 09/25/17 10:19 MCH 32 pg (28-32) 09/25/17 10:19 MCHC 33 % (30-34) 09/25/17 10:19 RDW 13.9 % (13.2-15.2) 09/25/17 10:19 Plt Count 208 K/mm3 (140-440) 09/25/17 10:19 Lymph % (Auto) 26.1 % (13.4-35.0) 09/25/17 10:19 Wharton % (Auto) 2.4 % (0.0-7.3) 09/25/17 10:19 Eos % (Auto) 1.6 % (0.0-4.3) 09/25/17 10:19 Baso % (Auto) 0.6 % (0.0-1.8) 09/25/17 10:19 Lymph # 3.1 K/mm3 (1.2-5.4) 09/25/17 10:19 Wharton # 0.3 K/mm3 (0.0-0.8) 09/25/17 10:19 Eos # 0.2 K/mm3 (0.0-0.4) 09/25/17 10:19 Baso # 0.1 K/mm3 (0.0-0.1) 09/25/17 10:19 Seg Neutrophils % 69.3 % (40.0-70.0) 09/25/17 10:19 Seg Neutrophils # 8.1 K/mm3 (1.8-7.7) H 09/25/17 10:19 POC ABG pH 7.361 (7.35-7.45) 09/25/17 15:28 POC ABG pCO2 29.4 (35-45) L 09/25/17 15:28 POC ABG pO2 66 (80-105) L 09/25/17 15:28 POC ABG HCO3 16.7 09/25/17 15:28 POC ABG Total CO2 18 09/25/17 15:28 POC ABG O2 Sat 92 09/25/17 15:28 POC ABG Base Excess -9 09/25/17 15:28 FiO2 21 % 09/25/17 15:28 Sodium 141 mmol/L (137-145) 09/25/17 10:19 Potassium 3.9 mmol/L (3.6-5.0) 09/25/17 10:19 Chloride 105.2 mmol/L (98-107) 09/25/17 10:19 Carbon Dioxide 20 mmol/L (22-30) L 09/25/17 10:19 Anion Gap 20 mmol/L 09/25/17 10:19 BUN 18 mg/dL (7-17) H 09/25/17 10:19 Creatinine 1.2 mg/dL (0.7-1.2) 09/25/17 10:19 Estimated GFR 55 ml/min 09/25/17 10:19 BUN/Creatinine Ratio 15 % 09/25/17 10:19 Glucose 108 mg/dL (65-100) H 09/25/17 10:19 Calcium 9.2 mg/dL (8.4-10.2) 09/25/17 10:19 Total Bilirubin 0.40 mg/dL (0.1-1.2) 09/25/17 10:19 AST 12 units/L (5-40) 09/25/17 10:19 ALT 14 units/L (7-56) 09/25/17 10:19 Alkaline Phosphatase 63 units/L (35-129) 09/25/17 10:19 Troponin T < 0.010 ng/mL (0.00-0.029) 09/27/17 10:50 Total Protein 7.2 g/dL (6.3-8.2) 09/25/17 10:19 Albumin 4.1 g/dL (3.9-5) 09/25/17 10:19 Albumin/Globulin Ratio 1.3 % 09/25/17 10:19
[2017-09-27] MEDS ORDERED: XANAX PO PRN (14:32)
[2017-09-27] MEDS: PERCOCET 5/325 PO PRN ×2 (16:42→21:38)
--- NOTE | 2017-09-27 20:17 | Progress Note ---
Assessment and Plan Patient alert, awake Resting on room air.O2 saturation 96%.No acute respiratory distress.Patient said she is going on BIPAP during night time. - Patient Problems (1) Angioedema Current Visit: Yes Status: Acute Plan to address problem: Improved. No tongue swelling today. (2) Chronic pain Current Visit: Yes Status: Acute Plan to address problem: Management as per primary care. (3) HTN (hypertension) Current Visit: Yes Status: Acute Qualifiers: Qualified Code(s): I15.1 - Hypertension secondary to other renal disorders; N28.89 - Other specified disorders of kidney and ureter; N28.89 - Other specified disorders of kidney and ureter Plan to address problem: Management as per primary care. (4) Seizure disorder Current Visit: Yes Status: Acute Plan to address problem: Management as per primary care. Subjective Date of service: 09/27/17 Principal diagnosis: Angioedema Interval history: Patient alert, awake Resting on room air.O2 saturation 96%.No acute respiratory distress.Patient said she is going on BIPAP during night time. Objective Vital Signs - 12hr 09/27/17 09/27/17 09/27/17 09:40 09:55 10:00 Temperature Pulse Rate [ 88 88 Anterior Bilateral Throughout] Pulse Rate [ 80 Bilateral Throughout] Respiratory Rate Respiratory 18 18 Rate [Anterior Bilateral Throughout] Respiratory 20 Rate [Bilateral Throughout] Blood Pressure O2 Sat by Pulse 96 Oximetry 09/27/17 09/27/17 09/27/17 14:57 16:15 16:30 Temperature 97.9 F Pulse Rate [ 90 66 Anterior Bilateral Throughout] Pulse Rate [ Bilateral Throughout] Respiratory 20 Rate Respiratory 20 18 Rate [Anterior Bilateral Throughout] Respiratory Rate [Bilateral Throughout] Blood Pressure 133/63 O2 Sat by Pulse Oximetry CBC and BMP: 09/25/17 10:19 09/25/17 10:19 ABG, PT/INR, D-dimer: ABG POC ABG pH 7.361 (7.35-7.45) 09/25/17 15:28 POC ABG pCO2 29.4 (35-45) L 09/25/17 15:28 POC ABG pO2 66 (80-105) L 09/25/17 15:28 POC ABG HCO3 16.7 09/25/17 15:28 POC ABG Total CO2 18 09/25/17 15:28 POC ABG O2 Sat 92 09/25/17 15:28 Abnormal lab findings: Abnormal Labs 09/25/17 09/25/17 09/25/17 10:19 10:19 15:28 WBC 11.7 H Seg Neutrophils # 8.1 H POC ABG pCO2 29.4 L POC ABG pO2 66 L Carbon Dioxide 20 L BUN 18 H Glucose 108 H
[2017-09-27] MEDS: PEPCID PO SCH (21:40)
[2017-09-28] MEDS: BENADRYL IV SCH ×2 (00:17→06:53)
[2017-09-28] MEDS: PERCOCET 5/325 PO PRN (06:52)
[2017-09-28] MEDS: HEPARIN SUB-Q SCH (07:15)
[2017-09-28 07:24] LABS: Bacteria,Urine 1+ /HPF (Negative); Bilirubin,Urine NEG (Negative); Blood,Urine NEG (Negative); Ketones,Urine TR mg/dL (Negative); Leukocyte Esterase,Urine LG (Negative); Mucus,Urine FEW /HPF; Nitrite,Urine POS (Negative); Protein,Urine <15 mg/dL mg/dL (Negative); Urobilinogen,Urine < 2.0 mg/dL (<2.0)
[2017-09-28 07:25] LABS: WBC,Urine > 182.0 /HPF (0.0-6.0)
[2017-09-28] MEDS: DUONEB *Not for PRN Use IH SCH ×2 (08:01→12:55)
--- NOTE | 2017-09-28 08:26 | Consultation ---
History of Present Illness Consult date: 09/28/17 History of present illness: [facility] the depakote is a/w with no allergies of this type Past History Past Medical History: GERD, hypertension, stroke, other (spinal stenosis) Past Surgical History: Other (multiple back surgery) Social history: full code. denies: smoking, alcohol abuse, prescription drug abuse, IV drug use Family history: no significant family history Medications and Allergies Allergies Allergy/AdvReac Type Severity Reaction Status Date / Time lisinopril Allergy Angioedema Verified 09/26/17 08:33 Home Medications Medication Instructions Recorded Confirmed Last Taken Type Ferrous Sulfate [Feosol 325 MG tab] 1 tab PO DAILY 09/25/17 09/25/17 09/24/17 21 :00 History 1000 Oxybutynin 5 mg PO BID 09/25/17 09/25/17 09/24/17 21:00 History 5mg Active Meds: Active Medications Albuterol/Ipratropium (Duoneb *Not For Prn Use*) 1 ampul IH QIDRT [facility] Last Admin: 09/28/17 08:01 Dose: 1 ampul Alprazolam (Xanax) 0.5 mg PO Q8H PRN PRN Reason: Anxiety Last Admin: 09/27/17 21:39 Dose: 0.5 mg Diphenhydramine HCl (Benadryl) 25 mg IV Q6HR [facility] Last Admin: 09/28/17 06:53 Dose: 25 mg Divalproex Sodium (Depakote Er) 500 mg PO BID [facility] Last Admin: 09/27/17 21:39 Dose: 500 mg Famotidine (Pepcid) 20 mg PO BID [facility] Last Admin: 09/27/17 21:40 Dose: 20 mg Heparin Sodium (Porcine) (Heparin) 5,000 unit SUB-Q Q8HR [facility] Last Admin: 09/28/17 07:15 Dose: 5,000 unit Methylprednisolone Sodium Succinate (Solu-Medrol) 60 mg IV Q6H [facility] Last Admin: 09/28/17 06:53 Dose: 60 mg Oxycodone/Acetaminophen (Percocet 5/325) 1 tab PO Q4H PRN PRN Reason: Pain, Moderate (4-6) Last Admin: 09/28/17 06:52 Dose: 1 tab Physical Examination - Vital Signs Vital Signs: Vital Signs Temp Pulse Resp BP Pulse Ox 98.4 F 100 H 16 104/77 97 09/25/17 08:35 09/25/17 08:35 09/25/17 08:35 09/25/17 08:35 09/25/17 08:35 Results - Laboratory Findings CBC and BMP: 09/25/17 10:19 09/25/17 10:19 Abnormal Lab Findings: Abnormal Labs 09/25/17 09/25/17 09/25/17 10:19 10:19 15:28 WBC 11.7 H Seg Neutrophils # 8.1 H POC ABG pCO2 29.4 L POC ABG pO2 66 L Carbon Dioxide 20 L BUN 18 H Glucose 108 H Urine WBC (Auto) 09/28/17 07:00 WBC Seg Neutrophils # POC ABG pCO2 POC ABG pO2 Carbon Dioxide BUN Glucose Urine WBC (Auto) > 182.0 H
[2017-09-28 08:38] VITALS: BP 145/60
[2017-09-28] MEDS: PEPCID PO SCH (09:42)
--- NOTE | 2017-09-28 10:52 | Discharge Summary ---
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 cedeno Notified:: answering service Phone number called:: cell/ Was contact made?: Yes If yes, spoke with:: rekha Time called:: 18:00 Primary care physician: CUSTOMER EQUIPMENT ENGINEER Hospitalization Reason for admission: Angioedema secondary to JULIA inhibitor Condition: Stable Pertinent studies: CXR normal AP film. Hospital course: 62-year-old -[place] female with past medical history significant for hypertension, seizure, spinal stenosis, GERD, stroke presented to the emergency department with complaints of facial swelling. Patient claimed she had itching on Tuesday afternoon, yesterday she had f facial swelling that has been progressively getting worse, involving the lips and this morning she has some change in her voice and patient presented to the emergency department. Patient has been taking lisinopril for many years. Patient has mild difficulty of breathing after she presented in the emergency department. Patient did have any wheezing, stridor, or any signs of respiratory distress. Patient was evaluated and start appropriate treatment for angioedema and house fellow consulted and admitted to ICU. patient was admitted to ICU and was treated with IV Solu-Medrol, Benadryl, famotidine and discontinued lisinopril and Keppra. Patient started on Depakote instead of Keppra and her blood pressure was well-controlled with the other BP medications and didn't start on new BP medications. patient's lip swelling subsided, no difficulty of breathing, no change in voice. Patient is hemodynamically stable at time of discharge. Patient was given appropriate medications prescription at time of discharge. patient was advised to follow up with her primary care physician. patient was advised to come back to ER if he has difficulty of breathing, lip swelling is getting worse. Her daughter was in the room on the the time of discharge and discussed the plan was care with her too. Disposition: [id number] TO HOME OR SELFCARE Time spent for discharge: 31 minutes - Discharge Diagnoses (1) Angioedema Status: Acute (2) Chronic pain Status: Acute (3) HTN (hypertension) Status: Acute (4) Seizure disorder Status: Acute Core Measure Documentation - Palliative Care Palliative Care/ Comfort Measures: Not Applicable - Core Measures Any of the following diagnoses?: none Exam - Physical Exam Narrative exam: Not in cardiopulmonary distress. The patient appeared well nourished and normally developed. Vital signs as documented. Lips swelling, facial swelling is markedly subsided Head exam is unremarkable. No scleral icterus . Neck is without jugular venous distension, thyromegaly, or carotid bruits. Lungs are clear to auscultation. No wheezing. Cardiac exam reveals regular rate and Rhythm. First and second heart sounds normal. No murmurs, rubs or gallops. Abdominal exam reveals normal bowel sounds, no masses, no organomegaly and no aortic enlargement. Extremities are nonedematous and both femoral and pedal pulses are normal. 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 No focal weakness. - Constitutional Vitals: Temp Pulse Resp BP Pulse Ox 97.7 F 67 20 145/60 99 09/28/17 08:04 09/28/17 08:04 09/28/17 08:04 09/28/17 08:04 09/28/17 08:04 Plan Activity: no restrictions Weight Bearing Status: Full Weight Bearing Diet: low fat, low cholesterol, low salt Follow up with: PRIMARY MD LUCIEN [Primary Care Provider] - 7 Days HAN PHELPS MD [Staff Physician] - 7 Days Prescriptions: Divalproex ER [Depakote ER] 500 mg PO BID #60 tablet Gabapentin [Neurontin] 600 mg PO BID #30 tablet guaiFENesin DM [Guaifenesin Dm Syrup] 20 ml PO Q4H PRN #1 bottle PRN Reason: Cough Levofloxacin [Levaquin TAB] 500 mg PO Q24HR #5 tablet Loratadine 10 mg PO DAILY #30 capsule Prednisone [predniSONE 10 mg (6-Day Pack, 21 Tabs)] 10 mg PO .TAPER #1 tab.ds.pk
[2017-09-28] MEDS ORDERED: GUAIFENESIN DM SYRUP PO PRN (12:00)
[2017-09-28] MEDS ORDERED: LOPRESSOR PO SCH (12:00)
[2017-09-28] MEDS ORDERED: LEVAQUIN PO SCH (12:00)
[2017-09-28] MEDS ORDERED: DITROPAN PO SCH (12:00)
[2017-09-28] MEDS ORDERED: PRAVACHOL PO SCH ×2 (22:00)
--- NOTE | 2017-10-05 10:05 | Query- Dyspnea ---
Maria Victoria Bingham____Juan Date:____10/05/17 [employer] Picker/CDS: [employer] / [place] Phone#:___[phone] Exercise your independent professional judgment when responding to query. Questions asked do not imply a particular answer is desired or expected. We greatly appreciate your clarification on this issue. Clinical Documentation States: 62 year old female was admitted on 09/25/17 The discharge summary (Dr. Martinez) states " Reason for admission: Angioedema secondary to JULIA inhibitor 62-year-old -[place]ovenian female with past medical history significant for hypertension, seizure, spinal stenosis, GERD, stroke presented to the emergency department with complaints of facial swelling. - Discharge Diagnoses (1) Angioedema Clinical Findings Show: O2 SAT: 83 Respiratory rate: 43 Please clarify if the patient had any of the following conditions based on the above clinical findings: [x] Respiratory Failure [x ] Acute [ ] Acute on Chronic [ ] Chronic [ ] Respiratory failure due to trauma [ ] Acute Respiratory Distress Syndrome [ ] Other: [ ] Unable to determine [ ] Comment/Explanation: Present on Admission: [ x] Yes (Y) [ ] Clinically undeterminable (W) [ ] No (N) Please also document response in your Progress Notes and/or Discharge Summary and indicate if the condition was present on admission. JESSICA
== END 2017-09-28 14:35 | disposition home or self-care (01) | DRG 915 ==
LOC: ED 08:21 → CC1 14:04 → 3A 09-26 16:43
PROVIDERS: ADMIT Internal Medicine; ATTEND Internal Medicine
PROC: 5A09457 Assistance with Respiratory Ventilation, 24-96 Consecutive Hours, Continuous Positive Airway Pressure (ICD-10-PCS; principal; 2017-09-25)
PROC: 4A033R1 Measurement of Arterial Saturation, Peripheral, Percutaneous Approach (ICD-10-PCS; 2017-09-25)
DX: T78.3XXA Angioneurotic edema, initial encounter (principal); J96.00 Acute respiratory failure, unspecified whether with hypoxia or hypercapnia; G40.909 Epilepsy, unspecified, not intractable, without status epilepticus; I10 Essential (primary) hypertension; K21.9 Gastro-esophageal reflux disease without esophagitis; G89.4 Chronic pain syndrome; T50.995A Adverse effect of other drugs, medicaments and biological substances, initial encounter; Y92.89 Other specified places as the place of occurrence of the external cause; Z86.73 Personal history of transient ischemic attack (TIA), and cerebral infarction without residual deficits
CPT/HCPCS: 36415; 36600; 71010; 80053; 81001; 82803; 84484; 85025; 93005; 93010; 94640; 94660; 94760; 96372; 96374; 96375; 99285; A9270-GY; J0171; J1200; J1644; J1953; J2060; J2270; J2930

== ENCOUNTER 2018-04-17 10:54 | Emergency (ER) | payer MEDICAID ==
[2018-04-17 11:45] LABS: Basophils # (Auto) 0.1 K/mm3 (0.0-0.1); Basophils % (Auto) 1.2 % (0.0-1.8); Eosinophils # (Auto) 0.3 K/mm3 (0.0-0.4); Eosinophils % (Auto) 3.7 % (0.0-4.3); Hematocrit 37.3 % (30.3-42.9); Hemoglobin 12.4 gm/dl (10.1-14.3); Lymphocytes # (Auto) 3.4 K/mm3 (1.2-5.4); Lymphocytes % (Auto) 45.7 % (13.4-35.0); Mean Corpuscular HGB Conc 33 % (30-34); Mean Corpuscular Hemoglobin 34 pg (28-32); Mean Corpuscular Volume 102 fl (79-97); Monocytes # (Auto) 0.7 K/mm3 (0.0-0.8); Monocytes % (Auto) 10.2 % (0.0-7.3); Platelet Count 128 K/mm3 (140-440); Red Blood Count 3.64 M/mm3 (3.65-5.03); Red Cell Distribution Width 14.4 % (13.2-15.2)
[2018-04-17 11:57] LABS: INR 0.8 (0.87-1.13)
[2018-04-17 11:58] LABS: Partial Thromboplastin Time 26.3 Sec. (24.2-36.6)
[2018-04-17 12:03] LABS: BUN/Creatinine Ratio 15; Blood Urea Nitrogen 17 mg/dL (7-17); Calcium 9.4 mg/dL (8.4-10.2); Hemolysis Index 11
--- NOTE | 2018-04-17 12:03 | Cat Scan Report ---
CT HEAD WITHOUT CONTRAST INDICATION: Neuro deficits <6 hours or symptoms present upon awakening. COMPARISON: 02/06/[address] FINDINGS: Noncontrast head CT demonstrates normal ventricles and sulci without acute or recent infarct, hemorrhage, mass effect or midline shift. No abnormal extra-axial fluid collections. Posterior fossa structures and basilar cisterns appear within normal limits. Stable bilateral cataract surgery. Mild left anterior ethmoid and left frontal sinus mucosal thickening now noted. Clear remainder imaged paranasal sinuses and mastoid air cells. Intact calvarium. Normal overlying scalp soft tissues. Stable posterior cervical fusion hardware and numerous missing molars. CONCLUSION: No acute intracranial CT abnormality with few other findings, as described. I phoned the above results to Dr. Silva in the ER, 11:50 AM, 04/17/2018. Thank you for the opportunity to participate in this patient's care.
[2018-04-17] MEDS ORDERED: NACL 0.9% 250ML 250 ML IV ONE (12:35)
[2018-04-17] MEDS ORDERED: TORADOL IV ONE (12:35)
--- NOTE | 2018-04-17 12:45 | Emergency Department Report ---
ED General Adult HPI - General Chief complaint: Neuro Symptoms/Deficit Stated complaint: NEURO SYMPTOMS Time Seen by Provider: 04/17/18 12:00 Source: patient, RN notes reviewed Mode of arrival: Ambulatory Limitations: No Limitations - History of Present Illness Initial comments: This is a 62-year-old female who is known to this provider previously. She reports a history of spinal stenosis surgery, performed in [place], also has a history of hypertension, seizure, spinal stenosis, GERD, stroke. Presents to the ER with multiple complaints. Her first complaint is bilateral medial distal leg numbness. This is painless, does not radiate anywhere, and has been present for weeks. Her next complaint is muscular spasms in her genital extremities. These are intermittent, painless and did not radiate anywhere. To me she does not make any complaint of headache. Her next complaint is left-sided nontraumatic upper thoracic flank pain. It does not radiate anywhere, and has no exacerbating or relieving factors. She reports a recent road trip out of psychiatric hospital. She denies irritative, obstructive urinary symptoms. She denies chest pain or shortness of breath. -: Gradual Location: back, left, right, upper extremity, lower extremity Radiation: other Quality: other Consistency: other Improves with: other Worsens with: other Associated Symptoms: denies: confusion, chest pain, cough, diaphoresis, fever/ chills, headaches, loss of appetite, malaise, nausea/vomiting, rash, seizure, shortness of breath, syncope, weakness - Related Data Home Medications Medication Instructions Recorded Confirmed Last Taken Ferrous Sulfate [Feosol 325 MG tab] 1 tab PO DAILY 09/25/17 09/25/17 09/24/17 21 :00 1000 Oxybutynin 5 mg PO BID 09/25/17 09/25/17 09/24/17 21:00 5mg Previous Rx's Medication Instructions Recorded Last Taken Type Divalproex ER [Depakote ER] 500 mg PO BID #60 tablet 09/28/17 Unknown Rx Gabapentin [Neurontin] 600 mg PO BID #30 tablet 09/28/17 Unknown Rx Levofloxacin [Levaquin TAB] 500 mg PO Q24HR #5 tablet 09/28/17 Unknown Rx Loratadine 10 mg PO DAILY #30 capsule 09/28/17 Unknown Rx Prednisone [predniSONE 10 mg 10 mg PO .TAPER #1 tab.ds.pk 09/28/17 Unknown Rx (6-Day Pack, 21 Tabs)] guaiFENesin DM [Guaifenesin Dm 20 ml PO Q4H PRN #1 bottle 09/28/17 Unknown Rx Syrup] Nitrofurantoin Dickenson/M-Cryst 100 mg PO Q12HR #12 capsule 04/17/18 Unknown Rx [Macrobid CAP] Allergies Allergy/AdvReac Type Severity Reaction Status Date / Time lisinopril Allergy Angioedema Verified 09/26/17 08:33 ED Review of Systems ROS: Stated complaint: NEURO SYMPTOMS Other details as noted in HPI Comment: All other systems reviewed and negative ED Past Medical Hx - Past Medical History Hx Hypertension: Yes Hx CVA: Yes Hx Heart Attack/AMI: Yes (-1977) Hx Congestive Heart Failure: No Hx Diabetes: No Hx Arthritis: Yes Hx Seizures: Yes Hx Asthma: No Hx COPD: No Hx HIV: No Additional medical history: c spine stenosis - Surgical History Additional Surgical History: j luis in neck, fusion c spine. - Social History Smoking Status: Current Every Day Smoker Substance Use Type: Alcohol - Medications Home Medications: Home Medications Medication Instructions Recorded Confirmed Last Taken Type Ferrous Sulfate [Feosol 325 MG tab] 1 tab PO DAILY 09/25/17 09/25/17 09/24/17 21 :00 History 1000 Oxybutynin 5 mg PO BID 09/25/17 09/25/17 09/24/17 21:00 History 5mg Divalproex ER [Depakote ER] 500 mg PO BID #60 tablet 09/28/17 Unknown Rx Gabapentin [Neurontin] 600 mg PO BID #30 tablet 09/28/17 Unknown Rx Levofloxacin [Levaquin TAB] 500 mg PO Q24HR #5 tablet 09/28/17 Unknown Rx Loratadine 10 mg PO DAILY #30 capsule 09/28/17 Unknown Rx Prednisone [predniSONE 10 mg 10 mg PO .TAPER #1 tab.ds.pk 09/28/17 Unknown Rx (6-Day Pack, 21 Tabs)] guaiFENesin DM [Guaifenesin Dm 20 ml PO Q4H PRN #1 bottle 09/28/17 Unknown Rx Syrup] Nitrofurantoin Dickenson/M-Cryst 100 mg PO Q12HR #12 capsule 04/17/18 Unknown Rx [Macrobid CAP] ED Physical Exam - General Limitations: No Limitations General appearance: alert, in no apparent distress - Head Head exam: Present: atraumatic, normocephalic - Eye Eye exam: Present: normal appearance, PERRL, EOMI. Absent: nystagmus - ENT ENT exam: Present: normal exam, normal orophraynx, mucous membranes moist, normal external ear exam - Neck Neck exam: Present: normal inspection, full ROM - Respiratory Respiratory exam: Present: normal lung sounds bilaterally. Absent: respiratory distress - Cardiovascular Cardiovascular Exam: Present: regular rate, normal rhythm, normal heart sounds. Absent: bradycardia, tachycardia, irregular rhythm, systolic murmur, diastolic murmur, rubs, gallop - GI/Abdominal GI/Abdominal exam: Present: soft, normal bowel sounds. Absent: distended, tenderness, guarding, rebound, rigid, pulsatile mass - Extremities Exam Extremities exam: Present: normal inspection, full ROM, normal capillary refill. Absent: pedal edema, joint swelling, calf tenderness - Back Exam Back exam: Present: normal inspection, full ROM. Absent: tenderness, CVA tenderness (R), paraspinal tenderness, vertebral tenderness - Neurological Exam Neurological exam: Present: alert, oriented X3, CN II-XII intact, normal gait, other (Extraocular movements intact. Tongue midline. No facial droop. Facial sensation intact to light touch in the V1, V2, V3 distribution bilaterally. 5 and 5 strength in 4 extremities.. Sensation is intact to light touch in 4 extremities.). Absent: motor sensory deficit - Psychiatric Psychiatric exam: Present: normal affect, normal mood - Skin Skin exam: Present: warm, dry, intact, normal color. Absent: rash ED Course Vital Signs 04/17/18 04/17/18 04/17/18 11:14 11:33 11:44 Temperature 97.8 F Pulse Rate 88 80 Respiratory 18 21 18 Rate Blood Pressure 146/81 O2 Sat by Pulse 96 95 98 Oximetry 04/17/18 04/17/18 04/17/18 11:50 12:00 12:16 Temperature Pulse Rate 73 72 Respiratory 14 24 Rate Blood Pressure 131/77 131/77 148/88 O2 Sat by Pulse 100 99 97 Oximetry 04/17/18 04/17/18 04/17/18 12:30 12:46 13:00 Temperature Pulse Rate Respiratory Rate Blood Pressure 148/88 148/88 148/88 O2 Sat by Pulse 98 100 98 Oximetry 04/17/18 04/17/18 04/17/18 13:16 13:41 15:04 Temperature Pulse Rate Respiratory 18 18 Rate Blood Pressure 148/88 O2 Sat by Pulse 97 Oximetry 04/17/18 15:06 Temperature Pulse Rate Respiratory 18 Rate Blood Pressure O2 Sat by Pulse Oximetry - Reevaluation(s) Reevaluation #1: 04/17/18 16:47 Given patient's initial complaint of left-sided flank pain and positive urinalysis she was treated empirically with ceftriaxone for presumed pyelonephritis. However her clinical presentation does not appear to be consistent with a pyelonephritis, and a CT scan of abdomen and pelvis was also not consistent with this. She will therefore be discharged with Macrobid instead of Levaquin. ED Medical Decision Making - Lab Data Result diagrams: 04/17/18 11:30 04/17/18 11:30 Vital Signs 04/17/18 04/17/18 04/17/18 11:14 11:33 11:44 Temperature 97.8 F Pulse Rate 88 80 Respiratory 18 21 18 Rate Blood Pressure 146/81 O2 Sat by Pulse 96 95 98 Oximetry 04/17/18 04/17/18 04/17/18 11:50 12:00 12:16 Temperature Pulse Rate 73 72 Respiratory 14 24 Rate Blood Pressure 131/77 131/77 148/88 O2 Sat by Pulse 100 99 97 Oximetry 04/17/18 04/17/18 04/17/18 12:30 12:46 13:00 Temperature Pulse Rate Respiratory Rate Blood Pressure 148/88 148/88 148/88 O2 Sat by Pulse 98 100 98 Oximetry 04/17/18 04/17/18 04/17/18 13:16 13:41 15:04 Temperature Pulse Rate Respiratory 18 18 Rate Blood Pressure 148/88 O2 Sat by Pulse 97 Oximetry 04/17/18 15:06 Temperature Pulse Rate Respiratory 18 Rate Blood Pressure O2 Sat by Pulse Oximetry Lab Results 04/17/18 04/17/18 04/17/18 Range/Units 11:18 11:30 11:30 WBC 7.3 (4.5-11.0) K/mm3 RBC 3.64 L (3.65-5.03) M/mm3 Hgb 12.4 (10.1-14.3) gm/dl Hct 37.3 (30.3-42.9) % MCV 102 H (79-97) fl MCH 34 H (28-32) pg MCHC 33 (30-34) % RDW 14.4 (13.2-15.2) % Plt Count 128 L (140-440) K/mm3 Lymph % (Auto) 45.7 H (13.4-35.0) % Dickenson % (Auto) 10.2 H (0.0-7.3) % Eos % (Auto) 3.7 (0.0-4.3) % Baso % (Auto) 1.2 (0.0-1.8) % Lymph # 3.4 (1.2-5.4) K/mm3 Dickenson # 0.7 (0.0-0.8) K/mm3 Eos # 0.3 (0.0-0.4) K/mm3 Baso # 0.1 (0.0-0.1) K/mm3 Seg Neutrophils % 39.2 L (40.0-70.0) % Seg Neutrophils # 2.9 (1.8-7.7) K/mm3 PT 11.5 L (12.2-14.9) Sec. INR 0.80 L (0.87-1.13) APTT 26.3 (24.2-36.6) Sec. Thrombin Time (15.1-19.6) Sec. D-Dimer (0-234) ng/mlDDU Sodium (137-145) mmol/L Potassium (3.6-5.0) mmol/L Chloride (98-107) mmol/L Carbon Dioxide (22-30) mmol/L Anion Gap mmol/L BUN (7-17) mg/dL Creatinine (0.7-1.2) mg/dL Estimated GFR ml/min BUN/Creatinine Ratio % Glucose (65-100) mg/dL POC Glucose 108 H (70-105) Calcium (8.4-10.2) mg/dL Total Creatine Kinase (30-135) units/L Troponin T (0.00-0.029) ng/mL Urine Color (Yellow) Urine Turbidity (Clear) Urine pH (5.0-7.0) Ur Specific Moody (1.003-1.030) Urine Protein (Negative) mg/dL Urine Glucose (UA) (Negative) mg/dL Urine Ketones (Negative) mg/dL Urine Blood (Negative) Urine Nitrite (Negative) Ur Reducing Substances Urine Bilirubin (Negative) Urine Ictotest Urine Urobilinogen (<2.0) mg/dL Ur Leukocyte Esterase (Negative) Urine WBC (Auto) (0.0-6.0) /HPF Urine RBC (Auto) (0.0-6.0) /HPF U Epithel Cells (Auto) (0-13.0) /HPF Urine Bacteria (Auto) (Negative) /HPF Urine Mucus /HPF 04/17/18 04/17/18 04/17/18 Range/Units 11:30 11:30 12:58 WBC (4.5-11.0) K/mm3 RBC (3.65-5.03) M/mm3 Hgb (10.1-14.3) gm/dl Hct (30.3-42.9) % MCV (79-97) fl MCH (28-32) pg MCHC (30-34) % RDW (13.2-15.2) % Plt Count (140-440) K/mm3 Lymph % (Auto) (13.4-35.0) % Dickenson % (Auto) (0.0-7.3) % Eos % (Auto) (0.0-4.3) % Baso % (Auto) (0.0-1.8) % Lymph # (1.2-5.4) K/mm3 Dickenson # (0.0-0.8) K/mm3 Eos # (0.0-0.4) K/mm3 Baso # (0.0-0.1) K/mm3 Seg Neutrophils % (40.0-70.0) % Seg Neutrophils # (1.8-7.7) K/mm3 PT (12.2-14.9) Sec. INR (0.87-1.13) APTT (24.2-36.6) Sec. Thrombin Time 15.5 (15.1-19.6) Sec. D-Dimer < 135.00 (0-234) ng/mlDDU Sodium 142 (137-145) mmol/L Potassium 4.4 (3.6-5.0) mmol/L Chloride 103.8 (98-107) mmol/L Carbon Dioxide 24 (22-30) mmol/L Anion Gap 19 mmol/L BUN 17 (7-17) mg/dL Creatinine 1.1 (0.7-1.2) mg/dL Estimated GFR > 60 ml/min BUN/Creatinine Ratio 15 % Glucose 118 H (65-100) mg/dL POC Glucose (70-105) Calcium 9.4 (8.4-10.2) mg/dL Total Creatine Kinase (30-135) units/L Troponin T < 0.010 (0.00-0.029) ng/mL Urine Color (Yellow) Urine Turbidity (Clear) Urine pH (5.0-7.0) Ur Specific Moody (1.003-1.030) Urine Protein (Negative) mg/dL Urine Glucose (UA) (Negative) mg/dL Urine Ketones (Negative) mg/dL Urine Blood (Negative) Urine Nitrite (Negative) Ur Reducing Substances Urine Bilirubin (Negative) Urine Ictotest Urine Urobilinogen (<2.0) mg/dL Ur Leukocyte Esterase (Negative) Urine WBC (Auto) (0.0-6.0) /HPF Urine RBC (Auto) (0.0-6.0) /HPF U Epithel Cells (Auto) (0-13.0) /HPF Urine Bacteria (Auto) (Negative) /HPF Urine Mucus /HPF 04/17/18 04/17/18 Range/Units 12:58 13:27 WBC (4.5-11.0) K/mm3 RBC (3.65-5.03) M/mm3 Hgb (10.1-14.3) gm/dl Hct (30.3-42.9) % MCV (79-97) fl MCH (28-32) pg MCHC (30-34) % RDW (13.2-15.2) % Plt Count (140-440) K/mm3 Lymph % (Auto) (13.4-35.0) % Dickenson % (Auto) (0.0-7.3) % Eos % (Auto) (0.0-4.3) % Baso % (Auto) (0.0-1.8) % Lymph # (1.2-5.4) K/mm3 Dickenson # (0.0-0.8) K/mm3 Eos # (0.0-0.4) K/mm3 Baso # (0.0-0.1) K/mm3 Seg Neutrophils % (40.0-70.0) % Seg Neutrophils # (1.8-7.7) K/mm3 PT (12.2-14.9) Sec. INR (0.87-1.13) APTT (24.2-36.6) Sec. Thrombin Time (15.1-19.6) Sec. D-Dimer (0-234) ng/mlDDU Sodium (137-145) mmol/L Potassium (3.6-5.0) mmol/L Chloride (98-107) mmol/L Carbon Dioxide (22-30) mmol/L Anion Gap mmol/L BUN (7-17) mg/dL Creatinine (0.7-1.2) mg/dL Estimated GFR ml/min BUN/Creatinine Ratio % Glucose (65-100) mg/dL POC Glucose (70-105) Calcium (8.4-10.2) mg/dL Total Creatine Kinase 165 H (30-135) units/L Troponin T (0.00-0.029) ng/mL Urine Color Yellow (Yellow) Urine Turbidity Clear (Clear) Urine pH 6.0 (5.0-7.0) Ur Specific Moody 1.023 (1.003-1.030) Urine Protein <15 mg/dl (Negative) mg/dL Urine Glucose (UA) Neg (Negative) mg/dL Urine Ketones Tr (Negative) mg/dL Urine Blood Neg (Negative) Urine Nitrite Pos (Negative) Ur Reducing Substances Not Reportable Urine Bilirubin Neg (Negative) Urine Ictotest Not Reportable Urine Urobilinogen < 2.0 (<2.0) mg/dL Ur Leukocyte Esterase Lg (Negative) Urine WBC (Auto) 15.0 H (0.0-6.0) /HPF Urine RBC (Auto) 8.0 (0.0-6.0) /HPF U Epithel Cells (Auto) 2.0 (0-13.0) /HPF Urine Bacteria (Auto) 4+ (Negative) /HPF Urine Mucus Few /HPF - EKG Data -: EKG Interpreted by Pa EKG shows normal: sinus rhythm, axis, intervals, QRS complexes, ST-T waves - EKG Data 04/17/18 16:41 Normal sinus, 6 81 bpm, normal axis, normal intervals, low voltage, poor R-wave progression, not a STEMI, appears unchanged from prior EKG from 2017. - Radiology Data Radiology results: report reviewed, image reviewed Noncontrast CT scan of the brain is negative for acute disease. Chronic findings noted. CT scan of the abdomen and pelvis is negative for acute disease, chronic findings noted. X-ray the chest is negative. - Medical Decision Making Differential diagnosis, including not limited to: Spinal stenosis, peripheral neuropathy, urinary tract infection, pneumonia, pulmonary embolus Assessment and plan: 62-year-old female with multiple nonspecific complaints. She is afebrile with reassuring vital signs, has a benign physical examination, walks with a steady gait, has a [place] Coma Scale of 15, NIH score of 0. Sensation intact to light touch, pinprick, proprioception of upper/ lower extremities. There is no pulsatile abdominal mass, history and physical not consistent with epidural compression syndrome or AAA. She endorses nontraumatic left-sided back pain, a d-dimer was negative, she is not hypoxic or tachycardic, the patient is low risk by well's criteria in my opinion. X-ray of the chest was negative, a noncontrast CT scan of the brain demonstrated no acute findings, CT scan abdomen pelvis image treated no acute findings, with multiple incidental findings. Patient was treated supportively and symptomatically, felt improved, and she can follow up for her multiple nonspecific symptoms as an outpatient. There does not appear to be an emergent condition demonstrated this time Critical care attestation.: If time is entered above; I have spent that time in minutes in the direct care of this critically ill patient, excluding procedure time. ED Disposition Clinical Impression: Left-sided back pain, Numbness, History of tremor Disposition: DC-01 TO HOME OR SELFCARE Is pt being admited?: No Does the pt Need Aspirin: No Condition: Good Additional Instructions: Rest, and avoid heavy lifting. Avoid strenuous physical activity. Cultures were sent today, results will be available in the next 3-5 days. Have a primary care doctor contact the medical records department to obtain culture results. Take the antibiotic therapy as directed, take pain medication as directed, follow up with a primary care doctor or neurology specialist within the next 2 weeks. Return to the ER right away with new pain, worsening pain, migration of pain, fevers, chills, lethargy, irritability, projectile vomiting, change in mental status, confusion, weakness, numbness, unsteady gait, change in mental status. Referrals: PRIMARY CARE, [Primary Care Provider] - 3-5 Days STORMY MAYO MD [Referring] - 3-5 Days ELIZABETH FUENTES MD [Staff Physician] - 3-5 Days DILMA RICHARDS MD [Staff Physician] - 3-5 Days [facility] [Provider Group] - 3-5 Days
[2018-04-17 13:01] VITALS: BP 148/88
[2018-04-17 13:44] LABS: Bacteria,Urine 4+ /HPF (Negative); Mucus,Urine FEW /HPF
[2018-04-17 14:14] LABS: Bilirubin,Urine NEG (Negative); Blood,Urine NEG (Negative); Color,Urine Yellow (Yellow); Protein,Urine <15 mg/dL mg/dL (Negative); Urobilinogen,Urine < 2.0 mg/dL (<2.0)
[2018-04-17] MEDS ORDERED: ROCEPHIN/NS 1 GM/50 ML 1 GM/50 ML BAG IV ONE (14:31)
[2018-04-17] MEDS ORDERED: SUBLIMAZE IV ONE (14:31)
--- NOTE | 2018-04-17 15:06 | XRay Report ---
ROUTINE CHEST, TWO VIEWS: HISTORY: Upper back pain. The trachea, heart, mediastinal contour, lung flores and bony thorax are unremarkable. Lower cervical fusion is partially imaged. No change is appreciated since 09/25/17. IMPRESSION: Unremarkable chest x-ray.
--- NOTE | 2018-04-17 16:23 | Cat Scan Report ---
CT ABDOMEN AND PELVIS WITH CONTRAST INDICATION: Back pain. Evaluate for left-sided pyelonephritis. COMPARISON: None similar. FINDINGS: Abdomen and pelvis CT performed following intravenous administration of 100 cc of Omnipaque 300. LUNG BASES: Bibasilar dependent atelectasis and slight scarring. Normal heart size. No effusions. Nonspecific distal esophageal wall prominence/thickening, not excluded for gastroesophageal reflux and/or hiatal hernia, amongst others. ABDOMEN: Liver, spleen, gallbladder, pancreas, adrenals, nonaneurysmal abdominal aorta with few atherosclerotic calcifications and IVC within normal limits. Patent veins. No hydronephrosis. Normal right kidney. Left renal scarring with approximately 50% cortical volume reduction. Few small, subcentimeter mesenteric and retroperitoneal lymph nodes. No ascites. Nonopacified GI tract evaluation limited, though grossly nonobstructive. Normal appendix. Mild colonic stool. Tiny fat-containing umbilical hernia. PELVIS: Urinary bladder, uterus, adnexa/ovaries and the rectosigmoid within normal limits. Urethral/periurethral cysts or diverticulum may be noted, measuring up to 2.3 x 0.9 cm on the left as on axial image 88, series 4. Approximately 2-3 mm anterolisthesis of L4 over L5. Moderate to severe L5-S1 disc narrowing with vacuum phenomenon, mild spurring and disc bulge. Lower thoracic spine degenerative changes as spurring, slight endplate irregularities and sclerosis also noted. Moderate to severe L4-L5 facet arthropathy, right more than left. Bilateral SI joint degenerative changes also seen. CONCLUSION: 1. Asymmetric left renal scarring noted without acute CT abnormality or evidence of left pyelonephritis. 2. Various other incidental findings as distal esophageal thickening, urethral diverticulum and predominantly lower thoracic and lower lumbar spine degenerative changes, amongst others, as described. Thank you for the opportunity to participate in this patient's care.
[2018-04-17] MEDS ORDERED: MACROBID PO ONE (16:58)
== END 2018-04-17 17:46 | disposition home or self-care (01) ==
LOC: ED 10:54
DX: M54.5 Low back pain (principal); I11.0 Hypertensive heart disease with heart failure; F17.200 Nicotine dependence, unspecified, uncomplicated; Z88.8 Allergy status to other drugs, medicaments and biological substances
CPT/HCPCS: 36415; 70450; 71046; 74177; 80048; 81001; 82550; 82962; 84484; 85025; 85379; 85610; 85670; 85730; 87076; 87086; 87186; 93005; 93010; 96374; 96375; 99285; J0696; J1885; J3010; J7050; Q9967

== ENCOUNTER 2020-10-01 20:17 | Emergency (ER) | payer MEDICAID ==
[2020-10-01 21:19] VITALS: BP 143/70
--- NOTE | 2020-10-01 22:25 | XRay Report ---
CHEST 2 VIEWS INDICATION / CLINICAL INFORMATION: MAIN. COMPARISON: 04/17/2018 FINDINGS: SUPPORT DEVICES: None. HEART / MEDIASTINUM: Stable. LUNGS / PLEURA: Mild platelike atelectasis versus scarring in the left lung base. No significant pulm onary or pleural abnormality. No pneumothorax. ADDITIONAL FINDINGS: No significant additional findings. IMPRESSION: 1. No acute findings. Signer Name: Moises Steinberg MD Signed: 10/01/2020 10:21 PM Workstation Name: [id number]
[2020-10-01 22:31] LABS: Hematocrit 37.8 % (30.3-42.9); Hemoglobin 12.8 gm/dl (10.1-14.3); Mean Corpuscular HGB Conc 34 % (30-34); Mean Corpuscular Volume 99 fl (79-97); Platelet Count 184 K/mm3 (140-440); Red Blood Count 3.83 M/mm3 (3.65-5.03); Red Cell Distribution Width 14.1 % (13.2-15.2)
[2020-10-01 22:43] LABS: Calcium 9.8 mg/dL (8.4-10.2)
--- NOTE | 2020-10-01 23:38 | Emergency Department Report ---
ED Dizziness HPI - General Chief Complaint: Dizziness Stated Complaint: BACK PAIN/CIRA/NO APPETITE/DIZZINESS Time Seen by Provider: 10/01/20 23:17 Source: patient Mode of arrival: Ambulatory Limitations: No Limitations - History of Present Illness Initial Comments: Patient is 65 years old female with history of hypertension, CVA and coronary artery disease. Patient presented to the ER complaining of dizziness for the last 2 weeks. Patient stated that dizziness is worse when she change position. Patient denied any head injury, neck injury. Patient currently denying any chest pain or shortness of breath. No fever or chills. MD Complaint: dizziness, lightheadedness -: week(s) (2) Timing: gradual onset Description: sense of movement, "room spinning", off-balance History of Same: Yes Severity: moderate Improves With: remaining still Worsens With: movement, position Associated Symptoms: denies other symptoms - Related Data Home Medications Medication Instructions Recorded Confirmed Last Taken Ferrous Sulfate [Feosol 325 MG tab] 1 tab PO DAILY 09/25/17 09/25/17 09/24/17 21:00 1000 Oxybutynin 5 mg PO BID 09/25/17 09/25/17 09/24/17 21:00 5 mg Previous Rx's Medication Instructions Recorded Last Taken Type Divalproex ER [Depakote ER] 500 mg PO BID #60 tablet 09/28/17 Unknown Rx Gabapentin [Neurontin] 600 mg PO BID #30 tablet 09/28/17 Unknown Rx Loratadine 10 mg PO DAILY #30 capsule 09/28/17 Unknown Rx Prednisone [predniSONE 10 mg 10 mg PO .TAPER #1 tab.ds.pk 09/28/17 Unknown Rx (6-Day Pack, 21 Tabs)] guaiFENesin DM [Guaifenesin Dm 20 ml PO Q4H PRN #1 bottle 09/28/17 Unknown Rx Syrup] levoFLOXacin [Levaquin TAB] 500 mg PO Q24HR #5 tablet 09/28/17 Unknown Rx Nitrofurantoin Alexander/M-Cryst 100 mg PO Q12HR #12 capsule 04/17/18 Unknown Rx [Macrobid CAP] Allergies Allergy/AdvReac Type Severity Reaction Status Date / Time lisinopril Allergy Angioedema Verified 09/26/17 08:33 ED Review of Systems ROS: Stated complaint: BACK PAIN/CIRA/NO APPETITE/DIZZINESS Other details as noted in HPI Comment: All other systems reviewed and negative Constitutional: denies: chills, fever Respiratory: denies: cough, shortness of breath, SOB with exertion, SOB at rest, wheezing Cardiovascular: denies: chest pain, palpitations Gastrointestinal: denies: abdominal pain, nausea, vomiting, diarrhea, constipation, hematemesis, melena, hematochezia Musculoskeletal: denies: back pain Neurological: vertigo. denies: headache, weakness ED Past Medical Hx - Past Medical History Previous Medical History?: Yes Hx Hypertension: Yes Hx CVA: Yes Hx Heart Attack/AMI: Yes (x2-1978) Hx Congestive Heart Failure: No Hx Diabetes: No Hx Arthritis: Yes Hx Seizures: Yes Hx Asthma: No Hx COPD: No Hx HIV: No Additional medical history: c spine stenosis - Surgical History Past Surgical History?: Yes Additional Surgical History: j luis in neck, fusion c spine. - Social History Smoking Status: Never Smoker Substance Use Type: None - Medications Home Medications: Home Medications Medication Instructions Recorded Confirmed Last Taken Type Ferrous Sulfate [Feosol 325 MG tab] 1 tab PO DAILY 09/25/17 09/25/17 09/24/17 21:00 History 1000 Oxybutynin 5 mg PO BID 09/25/17 09/25/17 09/24/17 21:00 History 5 mg Divalproex ER [Depakote ER] 500 mg PO BID #60 tablet 09/28/17 Unknown Rx Gabapentin [Neurontin] 600 mg PO BID #30 tablet 09/28/17 Unknown Rx Loratadine 10 mg PO DAILY #30 capsule 09/28/17 Unknown Rx Prednisone [predniSONE 10 mg 10 mg PO .TAPER #1 tab.ds.pk 09/28/17 Unknown Rx (6-Day Pack, 21 Tabs)] guaiFENesin DM [Guaifenesin Dm 20 ml PO Q4H PRN #1 bottle 09/28/17 Unknown Rx Syrup] levoFLOXacin [Levaquin TAB] 500 mg PO Q24HR #5 tablet 09/28/17 Unknown Rx Nitrofurantoin Alexander/M-Cryst 100 mg PO Q12HR #12 capsule 04/17/18 Unknown Rx [Macrobid CAP] ED Physical Exam - General Limitations: No Limitations General appearance: alert, in no apparent distress - Head Head exam: Present: atraumatic, normocephalic, normal inspection - Eye Eye exam: Present: normal appearance, PERRL - ENT ENT exam: Present: normal exam, normal orophraynx, mucous membranes moist - Neck Neck exam: Present: normal inspection, full ROM. Absent: tenderness, meningismus, lymphadenopathy, thyromegaly - Respiratory Respiratory exam: Present: normal lung sounds bilaterally - Cardiovascular Cardiovascular Exam: Present: regular rate, normal rhythm, normal heart sounds - GI/Abdominal GI/Abdominal exam: Present: soft, normal bowel sounds. Absent: distended, tenderness, guarding, rebound, rigid, organomegaly, mass, bruit, pulsatile mass, hernia - Extremities Exam Extremities exam: Present: normal inspection, full ROM, normal capillary refill. Absent: tenderness - Back Exam Back exam: Present: normal inspection, full ROM. Absent: CVA tenderness (R), CVA tenderness (L), muscle spasm, paraspinal tenderness, vertebral tenderness - Neurological Exam Neurological exam: Present: alert, oriented X3, CN II-XII intact - Psychiatric Psychiatric exam: Present: normal mood - Skin Skin exam: Present: warm, intact, normal color ED Course Vital Signs 10/01/20 21:16 Temperature 98.3 F Pulse Rate 85 Respiratory 18 Rate Blood Pressure 143/70 O2 Sat by Pulse 100 Oximetry ED Medical Decision Making - Lab Data Result diagrams: 10/01/20 21:27 10/01/20 21:27 - EKG Data -: EKG Interpreted by Ga EKG shows normal: sinus rhythm Rate: normal - EKG Data Interpretation: no acute changes - Radiology Data Radiology results: report reviewed - Medical Decision Making Patient is 65 years old female with history of hypertension, CVA and coronary ar surinder disease. Patient presented to the ER complaining of dizziness for the last 2 weeks. Patient stated that dizziness is worse when she change position. Patient denied any head injury, neck injury. Patient currently denying any chest pain or shortness of breath. No fever or chills. EKG is unremarkable. Labs reviewed and is negative for acute finding. CT brain is unremarkable. Patient symptoms most likely related to positional vertigo however patient advised to follow-up with her primary doctor in the next 2 to 3 days and to return to the ER if she develop any new symptoms. Patient given prescription for meclizine. Critical care attestation.: If time is entered above; I have spent that time in minutes in the direct care of this critically ill patient, excluding procedure time. ED Disposition Clinical Impression: Dizziness, Vertigo Disposition: DC-01 TO HOME OR SELFCARE Is pt being admited?: No Condition: Stable Instructions: Dizziness, [id number], Benign Positional Vertigo Referrals: FAVIO TAYLOR MD [Primary Care Provider] - 3-5 Days
[2020-10-02 01:43] LABS: Band Neutrophils # (Manual) 0.1 K/mm3; Total Cells Counted 100
[2020-10-02 01:49] LABS: Burr Cells Rare; Platelet Estimate Consistent w Auto
--- NOTE | 2020-10-02 03:17 | Cat Scan Report ---
CT head/brain wo con INDICATION: Patient complains of dizziness x 2 weeks, Hx of Hypertension.. TECHNIQUE: Routine CT head without contrast. All CT scans at this location are performed using CT dos e reduction for ALARA by means of automated exposure control. COMPARISON: CT head 04/17/2018 FINDINGS: BRAIN / INTRACRANIAL CONTENTS: No acute hemorrhage, mass effect, midline shift, or hydrocephalus. No appreciable acute large territorial or lacunar infarct. No chronic infarct or focal atrophy. Normal b rain volume and ventricular/sulcal size for age. Minimal white matter hypodensity in the left queen radiata is unchanged from prior examination and likely reflects chronic microvascular ischemic change . ORBITS: No significant abnormality of visualized orbits. SINUSES / MASTOIDS: No significant abnormality of visualized sinuses and mastoid air cells. ADDITIONAL FINDINGS: None. IMPRESSION: 1. No acute intracranial abnormality on noncontrast CT of the brain, and no significant change from p rior. Signer Name: Brenda Travis MD Signed: 10/02/2020 3:13 AM Workstation Name: [id number]
== END 2020-10-02 03:46 | disposition home or self-care (01) ==
LOC: ED 20:17
DX: R42 Dizziness and giddiness (principal); I10 Essential (primary) hypertension; I25.2 Old myocardial infarction; M19.90 Unspecified osteoarthritis, unspecified site; G40.909 Epilepsy, unspecified, not intractable, without status epilepticus; Z98.890 Other specified postprocedural states; Z86.73 Personal history of transient ischemic attack (TIA), and cerebral infarction without residual deficits; Z79.899 Other long term (current) drug therapy; Z88.8 Allergy status to other drugs, medicaments and biological substances
CPT/HCPCS: 36415; 70450; 71046; 80048; 85007; 85025; 93005

== ENCOUNTER 2021-03-15 14:29 | Emergency (ER) | payer MEDICAID ==
[2021-03-15 17:00] VITALS: BP 134/74
--- NOTE | 2021-03-15 17:32 | XRay Report ---
LEFT KNEE 3 VIEW(S) INDICATION / CLINICAL INFORMATION: left knee pain COMPARISON: None available. FINDINGS: BONES / JOINT(S): No acute fracture or subluxation. There are small calcifications adjacent to the pr oximal fibula which favor a vascular etiology. No significant arthritis. SOFT TISSUES: No significant abnormality. ADDITIONAL FINDINGS: None. Signer Name: Malick Townsend MD Signed: 03/15/2021 5:28 PM Workstation Name: [id number]
--- NOTE | 2021-03-15 17:48 | Emergency Department Report ---
ED Lower Extremity HPI - General Chief Complaint: Fall Stated Complaint: LEFT LEG INJURY Time Seen by Provider: 03/15/21 16:56 Source: patient, EMS Mode of arrival: Ambulatory Limitations: No Limitations - History of Present Illness Initial Comments: This is a 65-year-old female nontoxic, well nourished in appearance, no acute signs of distress presents to the ED with c/o of left knee pain 1 day. Patient stated that she had a trip and fall and landed to left knee. Patient denies any other injuries or trauma. Patient denies any numbness, tingling, fever, chills, nausea, vomiting, chest pain, shortness of breath, headache, stiff neck. Patient denies any joint swelling or joint redness. Patient denies decreased range of motion. Patient stated has decreased gait due to pain. Patient stated allergies to lisinopril. MD Complaint: knee injury -: days(s) Injury: Knee: Left Place: home Severity: mild Severity scale (0 -10): 3 Improves With: immobilization Worsens With: weight bearing, movement, palpation Context: fall Associated Symptoms: able to partially bear weight. denies: snap/pop sensation, swelling, numbness, tingling, unable to bear weight - Related Data Home Medications Medication Instructions Recorded Confirmed Last Taken Ferrous Sulfate [Feosol 325 MG tab] 1 tab PO DAILY 09/25/17 09/25/17 09/24/17 21:00 1000 Oxybutynin 5 mg PO BID 09/25/17 09/25/17 09/24/17 21:00 5 mg Previous Rx's Medication Instructions Recorded Last Taken Type Divalproex ER [Depakote ER] 500 mg PO BID #60 tablet 09/28/17 Unknown Rx Gabapentin [Neurontin] 600 mg PO BID #30 tablet 09/28/17 Unknown Rx Loratadine 10 mg PO DAILY #30 capsule 09/28/17 Unknown Rx Prednisone [predniSONE 10 mg 10 mg PO .TAPER #1 tab.ds.pk 09/28/17 Unknown Rx (6-Day Pack, 21 Tabs)] guaiFENesin DM [Guaifenesin Dm 20 ml PO Q4H PRN #1 bottle 09/28/17 Unknown Rx Syrup] levoFLOXacin [Levaquin TAB] 500 mg PO Q24HR #5 tablet 09/28/17 Unknown Rx Nitrofurantoin Lassen/M-Cryst 100 mg PO Q12HR #12 capsule 04/17/18 Unknown Rx [Macrobid CAP] Meclizine [Antivert] 25 mg PO TID PRN #20 tablet 10/02/20 Unknown Rx Naproxen 500 mg PO Q12H PRN #12 tablet 03/15/21 Unknown Rx Allergies Allergy/AdvReac Type Severity Reaction Status Date / Time lisinopril Allergy Angioedema Verified 09/26/17 08:33 ED Review of Systems ROS: Stated complaint: LEFT LEG INJURY Other details as noted in HPI Comment: All other systems reviewed and negative Constitutional: denies: chills, fever Eyes: denies: eye pain, eye discharge, vision change ENT: denies: ear pain, throat pain Respiratory: denies: cough, shortness of breath, wheezing Cardiovascular: denies: chest pain, palpitations Endocrine: no symptoms reported Gastrointestinal: denies: abdominal pain, nausea, diarrhea Genitourinary: denies: urgency, dysuria, discharge Musculoskeletal: denies: back pain, joint swelling, arthralgia Skin: denies: rash, lesions Neurological: denies: headache, weakness, paresthesias Psychiatric: denies: anxiety, depression Hematological/Lymphatic: denies: easy bleeding, easy bruising ED Past Medical Hx - Past Medical History Previous Medical History?: Yes Hx Hypertension: Yes Hx CVA: Yes Hx Heart Attack/AMI: Yes (x2-1978) Hx Congestive Heart Failure: No Hx Diabetes: No Hx Arthritis: Yes Hx Seizures: Yes Hx Asthma: No Hx COPD: No Hx HIV: No Additional medical history: c spine stenosis - Surgical History Past Surgical History?: Yes Additional Surgical History: j luis in neck, fusion c spine. - Social History Smoking Status: Current Every Day Smoker Substance Use Type: Alcohol - Medications Home Medications: Home Medications Medication Instructions Recorded Confirmed Last Taken Type Ferrous Sulfate [Feosol 325 MG tab] 1 tab PO DAILY 09/25/17 09/25/17 09/24/17 21:00 History 1000 Oxybutynin 5 mg PO BID 09/25/17 09/25/17 09/24/17 21:00 History 5 mg Divalproex ER [Depakote ER] 500 mg PO BID #60 tablet 09/28/17 Unknown Rx Gabapentin [Neurontin] 600 mg PO BID #30 tablet 09/28/17 Unknown Rx Loratadine 10 mg PO DAILY #30 capsule 09/28/17 Unknown Rx Prednisone [predniSONE 10 mg 10 mg PO .TAPER #1 tab.ds.pk 09/28/17 Unknown Rx (6-Day Pack, 21 Tabs)] guaiFENesin DM [Guaifenesin Dm 20 ml PO Q4H PRN #1 bottle 09/28/17 Unknown Rx Syrup] levoFLOXacin [Levaquin TAB] 500 mg PO Q24HR #5 tablet 09/28/17 Unknown Rx Nitrofurantoin Lassen/M-Cryst 100 mg PO Q12HR #12 capsule 04/17/18 Unknown Rx [Macrobid CAP] Meclizine [Antivert] 25 mg PO TID PRN #20 tablet 10/02/20 Unknown Rx Naproxen 500 mg PO Q12H PRN #12 tablet 03/15/21 Unknown Rx ED Physical Exam - General Limitations: No Limitations General appearance: alert, in no apparent distress - Head Head exam: Present: atraumatic, normocephalic - Eye Eye exam: Present: normal appearance - Neck Neck exam: Present: normal inspection, full ROM - Respiratory Respiratory exam: Absent: respiratory distress - Cardiovascular Cardiovascular Exam: Present: regular rate - Extremities Exam Extremities exam: Present: normal inspection, full ROM, tenderness, normal capillary refill. Absent: joint swelling, calf tenderness - Expanded Lower Extremity Exam Left Hip exam: Present: normal inspection, full ROM. Absent: tenderness, swelling Upper Leg exam: Present: normal inspection, full ROM. Absent: tenderness, swelling Knee exam: Present: normal inspection, full ROM, tenderness, full knee extension. Absent: swelling, abrasion, laceration, ecchymosis, deformity, crepidus, dislocation, erythema, effusion, pain w/ pronation/supination, posterior draw sign, pain/laxity with valgus, pain/laxity with varus Lower Leg exam: Present: normal inspection, full ROM. Absent: tenderness, swelling Ankle exam: Present: normal inspection, full ROM. Absent: tenderness, swelling Foot/Toe exam: Present: normal inspection, full ROM. Absent: tenderness, swelling Neuro vascular tendon exam: Present: no vascular compromise Gait: Positive: observed and limited by pain - Back Exam Back exam: Present: normal inspection, full ROM. Absent: tenderness, CVA tenderness (R), CVA tenderness (L), muscle spasm, paraspinal tenderness, vertebral tenderness, rash noted - Neurological Exam Neurological exam: Present: alert, oriented X3 - Psychiatric Psychiatric exam: Present: normal affect, normal mood - Skin Skin exam: Present: warm, dry, intact, normal color. Absent: rash ED Course Vital Signs 03/15/21 16:57 Temperature 98.8 F Pulse Rate 72 Respiratory 20 Rate Blood Pressure 134/74 O2 Sat by Pulse 97 Oximetry - Reevaluation(s) Reevaluation #1: 03/15/21 17:48 Patient is speaking in full sentences with no signs of distress noted. ED Lower Extremity MDM - Radiology Data [facility] [address] [place] [address] XRay Report Signed Patient: JOSEPH TRIVEDI MR#: [id number] : 1955 Acct:[id number] Age/Sex: 65 / F ADM Date: 03/15/21 Loc: ED Attending Dr: Ordering Physician: BO COE NP Date of Service: 03/15/21 Procedure(s): XR knee 3V LT Accession Number(s): [id number] cc: BO COE NP Fluoro Time In Minutes: LEFT KNEE 3 VIEW(S) INDICATION / CLINICAL INFORMATION: left knee pain COMPARISON: None available. FINDINGS: BONES / JOINT(S): No acute fracture or subluxation. There are small calcifications adjacent to the proximal fibula which favor a vascular etiology. No significant arthritis. SOFT TISSUES: No significant abnormality. ADDITIONAL FINDINGS: None. Signer Name: Kanika Townsend MD Signed: 03/15/2021 5:28 PM Workstation Name: [id number] Transcribed By: SS Dictated By: KANIKA TOWNSEND Electronically Authenticated By: Jackson TOWNSEND Signed Date/Time: 03/15/211727 DD/ 26 TD/TT: - Medical Decision Making This is a 65-year-old female that presents with left knee strain. Patient is stable and was examined by me. I referred patient to an orthopedic doctor for further evaluation for possible MRI. X-ray has been obtained and dictated by the radiologist. Patient is notified of the x-ray report with noted by the patient. Patient does have normal gait with no tenderness and no joint swelling. No ecchymosis. no joint redness or swelling. Not warm to touch. No signs of cellulites present. Patient received a knee immobilize and walker and educated by RN how to use walker. Patient was instructed to RICE therapy. Patient is discharged with Naproxen. At time of discharge, the patient does not seem toxic or ill in appearance. No acute signs of distress noted. Patient agrees to discharge treatment plan of care. No further questions noted by the patient. Critical care attestation.: If time is entered above; I have spent that time in minutes in the direct care of this critically ill patient, excluding procedure time. ED Disposition Clinical Impression: Strain of left knee Qualifiers: Encounter type: initial encounter Qualified Code(s): S86.912A - Strain of unspecified muscle(s) and tendon(s) at lower leg level, left leg, initial encounter Disposition: TO HOME OR SELFCARE Is pt being admited?: No Does the pt Need Aspirin: No Condition: Stable Instructions: How to Use a Knee Immobilizer, How To Use a Walker With Gliders, RICE Therapy for Routine Care of Injuries, [id number] Additional Instructions: Follow-up with a orthopedic doctor in 3-5 days or if symptoms worsen and continue return to emergency room as soon as possible. No physical activity that extremity until cleared by orthopedic doctor Prescriptions: Naproxen 500 mg PO Q12H PRN #12 tablet PRN Reason: Pain , Severe (7-10) Referrals: PRIMARY CARE, [Referring] - 3-5 Days RADHA GUNN MD [Staff Physician] - 3-5 Days Time of Disposition: 17:51
== END 2021-03-15 18:40 | disposition home or self-care (01) ==
LOC: ED 14:29
DX: S86.912A Strain of unspecified muscle(s) and tendon(s) at lower leg level, left leg, initial encounter (principal); I10 Essential (primary) hypertension; I25.2 Old myocardial infarction; M19.91 Primary osteoarthritis, unspecified site; R56.9 Unspecified convulsions; F17.200 Nicotine dependence, unspecified, uncomplicated; Z86.73 Personal history of transient ischemic attack (TIA), and cerebral infarction without residual deficits; Z98.890 Other specified postprocedural states; Z79.899 Other long term (current) drug therapy; Z88.8 Allergy status to other drugs, medicaments and biological substances; W01.0XXA Fall on same level from slipping, tripping and stumbling without subsequent striking against object, initial encounter; Y93.89 Activity, other specified; Y92.89 Other specified places as the place of occurrence of the external cause; Y99.8 Other external cause status